=== PATIENT | male | born 1960 | race Caucasian/White ===

== ENCOUNTER 2021-11-12 12:50 | Inpatient (IN) | payer OTHER ==
[~2021-11-12] VITALS: Ht 175.3 cm; Wt 111.9 kg
[2021-11-12] MEDS ORDERED: BISACODYL 10 MG SUPP (DULCOLAX) PR PRN (13:30)
[2021-11-12] MEDS ORDERED: polyethylene glycoL POWDER 17 GM (MIRALAX) PACK PO PRN (13:30)
[2021-11-12] MEDS ORDERED: diphenhydrAMINE 50 MG/ML INJ (BENADRYL) IVP PRN (13:30)
[2021-11-12] MEDS ORDERED: CALCIUM CARBONATE 500 MG (TUMS) TAB.CHEW PO PRN (13:30)
[2021-11-12] MEDS ORDERED: MILK OF MAGNESIA 400 MG/5 ML 30 ML UDC PO PRN (13:30)
[2021-11-12] MEDS ORDERED: LACTULOSE SYRUP 10GM/15ML (ENULOSE) 30ML UDC PO PRN (13:30)
[2021-11-12] MEDS ORDERED: ONDANSETRON 4 MG/2 ML (SDV) Z0FRAN IV PRN (13:30)
[2021-11-12] MEDS ORDERED: ACETAMINOPHEN 325 MG TABLET PO PRN (13:30)
[2021-11-12] MEDS ORDERED: morphine INJ 4 MG/ML 1 ML (VIAL/SYRINGE) IV PRN (13:30)
[2021-11-12] MEDS ORDERED: guaiFENesin/CODEINE (ROBITUSSIN AC) 10ML UDC PO PRN (13:30)
[2021-11-12] MEDS ORDERED: ONDANSETRON 4 MG (ZOFRAN) ORAL DISSOLVE TAB PO PRN (13:30)
[2021-11-12] MEDS ORDERED: MELATONIN 3 MG TABLET PO PRN (13:30)
[2021-11-12] MEDS ORDERED: ANTACID SUSP 30 ML UDC (MYLANTA) PO PRN (13:30)
[2021-11-12] MEDS ORDERED: diphenhydrAMINE 25 MG TAB (BENADRYL) PO PRN (13:30)
[2021-11-12] MEDS: inSUlin ASPART (NovoLOG) 1 UNIT/0.01 ML (CHARGE PER UNIT) SC SCH ×2 (16:00→21:18)
--- OUTSIDE RECORDS SUMMARY | 2021-11-12 16:59 | XMS REPORT | Encounter Summary ---
Author Author [facility] Organization [facility] Address Unknown Phone Unavailable Care Team Providers Care Electronics Technician Name Role Phone MaineSandi JANAY PCP Reason for Referral * Diagnostic Imaging (Routine) - Authorized Diagnoses / Procedures Referred By [facility] Typical atrial flutter (HCC) Persistent atrial fibrillation (HCC) LBBB (left bundle branch block) Procedures Electrocardiogram ([place] [address] [place] [address] Referral ID Status Reason Start Date Expiration Visits Vi sits Date Requested Authorized [id number] Authorized 09/28/2021 03/29/2022 1 1 NE OILER Reason for Visit * Reason Comments Atrial fibrillation Atrial flutter Cardiomyopathy LBBB Encounter Details Care Team Description Date [place] [address] [place] [address] Persistent atrial fibrillation (Primary Dx); Typical atrial flutter (HCC); HOCM (hypertrophic obstructive cardiomyopathy) (HCC); Dyslipidemia; LBBB (left bundle branch block); S/P ablation of atrial fibrillation; S/P ablation of atrial flutter; S/P ventricular septal myectomy; S/P mitral valve repair; S/P left atrial appendage ligation 09/28/2021 Office Visit [facility] [address] [place], [place] [id number] Social History Date Tobacco Use Types Packs/Day Years Used Former Smoker Cigars, 0.5 20 Cigarettes Smokeless Tobacco: Former Chew Quit: 1989 User Comments Alcohol Use Standard Drinks/Week Yes 5 (1 standard drink = 0.6 o z pure alcohol) Sex Assigned at Date Recorded Not on file documented as of this encounter Last Filed Vital Signs Reading Time Taken Comments Vital Sign 124/97 09/28/2021 10:38 AM ENGINE OILER Blood Pressure 65 09/28/2021 10:38 AM ENGINE OILER Pulse - - Temperature - - Respiratory Rate - - Oxygen Saturation - - Inhaled Oxygen Concentration 112.5 kg (248 lb) 09/28/2021 10:38 AM ENGINE OILER Weight 170.2 cm (5' 7") 09/28/2021 10:38 AM ENGINE OILER Height 38.84 09/28/2021 10:38 AM ENGINE OILER Body Mass Index documented in this encounter Patient Instructions * Patient Instructions* Rupa Campbell RN - 09/28/2021 11:05 AM ENGINE OILER Your doctor has ordered the following test(s): No testing ordered A nurse will contact you with the results and your doctor's recommendations appr oximately 7-10 business days after the test has been completed. Medication Instructions: Continue current medications Additional Instructions: Things you can check to clue you in to A-fib: Check your pulse and see if it feels irregular verses regular. If it feels ir regular you may be in A-fib. Some BP monitors have a feature that will indicate you are in an irregular rh ythm. If it is irregular you may be in A-fib. Count your pulse and if your pulse is above 100 at rest then you may be in A- fib Check your rhythm with the Alive-Cor Kardia monitor and danielito or Apple watch 4 or above. (These are simply optional devices you can purchase to help you monito r your rhythm) They will tell you if you are in A-fib. Things that reduce your risk of a-fib reoccurence Moderate exercise 5-6 days per week Living at a healthy weight Limit alcohol intake to no more than 1 drink daily Treat sleep apnea if you have it or develop it Treat hypertension and the goal is to be in the normal range <140/80 Goal is to get a minimum of 150 mins aerobic exercise per week. It can be as si mple as 30 mins of walking 5 days per week. Follow up with MD/Advanced Practice Provider: annually with Dr. Crockett Please call the Dr. Crockett's Nurse Line at [phone] ([facility] Nurse Team). with any questions or concerns. For medication refill needs, please first contact [facility]. If you have not heard from scheduling within about 3-4 months of your next appoi ntment being due then please call us to schedule. For any [facility] scheduling questions, please call . At [facility], high quality patient care is our top priority. To ensure our cardiovascular standards are continuously met, you may receive a survey via [place] or text message, and we ask that you please take the time to fill it out. We strive to ensure you are very satisfied with every visit. Thank you in advance for taking the time to fill this out. It was a pleasure to see you again. Dr. Crockett and LOCO Goode NE OILER documented in this encounter Progress Notes * Kolby Crockett MD - 09/28/2021 11:05 AM ENGINE OILER [facility] Appointment Date: 09/28/2021 JANAY Hilton [address] [facility] [address] RE: Lillian Stover : 1960 Visit provider: Kolby Crockett MD Dear JANAY Hilton, I had the pleasure of seeing Lillian Stover in the office today. He is a(n) 61 y.o . male and presents with the following chief complaint(s): Atrial fibrillation, Atrial flutter, Cardiomyopathy, and LBBB HPI: He presents for annual cardiac electrophysiology followup due to a history of sy mptomatic recurrent persistent atrial fibrillation and atrial flutter. He has a history of hypertrophic obstructive cardiomyopathy, status post surgical myecto my with concomitant mitral valve repair and left atrial appendage ligation. It is noteworthy that the left atrial appendage is not fully ligated, however. He underwent a repeat invasive electrophysiology study in 2019, where we determined that the pulmonary veins remained electrically isolated from the initial ablati on procedure. We isolated the posterior wall using a "box lesion" and performed radiofrequency catheter ablation of the cavotricuspid isthmus. We determined t hat the superior vena cava was electrically isolated from the right atrium. Ove r the past year, he has had only fleeting symptoms of palpitations. He denies s ymptoms of chest pain, syncope, presyncope, dyspnea, or lower extremity edema. Laboratory tests are monitored by his primary care physician. Patient Active Problem List Diagnosis SNOMED CT(R) HOCM (hypertrophic obstructive cardiomyopathy) (HCC) HYPERTROPHIC OBSTRUCTIV E CARDIOMYOPATHY Mixed hyperlipidemia MIXED HYPERLIPIDEMIA Essential hypertension ESSENTIAL HYPERTENSION Family history of premature CAD FH: PREMATURE CORONARY HEART DISEASE LBBB (left bundle branch block) LEFT BUNDLE BRANCH BLOCK S/P patent foramen ovale closure HISTORY OF REPAIR OF ATRIAL SEPTAL DEFECT H/O ventricular septal myectomy H/O CARDIAC SURGERY Obesity (BMI 30-39.9) BODY MASS INDEX 30+ - OBESITY Agatston CAC score, <100 CORONARY ARTERY FINDING Atrial dilatation, bilateral ATRIAL DILATATION S/P mitral valve repair HISTORY OF REPAIR OF MITRAL VALVE S/P ablation of atrial fibrillation H/O: ATRIAL FIBRILLATION Atrial flutter (HCC) ATRIAL FLUTTER Persistent atrial fibrillation PERSISTENT ATRIAL FIBRILLATION Hypothyroidism HYPOTHYROIDISM Reactive airway disease REACTIVE AIRWAY DISEASE Hiatal hernia HIATAL HERNIA Coronary artery calcification of ak chin artery CALCIFICATION OF CORONARY ART NEGRO Past Medical History: Diagnosis Date Agatston CAC score, <100 03/28/2017 Agatston Score: 54.2 Asthma Atrial dilatation, bilateral Atrial fibrillation (HCC) Atrial flutter (HCC) Coronary artery calcification of ak chin artery Essential hypertension Family history of premature CAD Sister at age 48 Hiatal hernia 10/01/2020 HOCM (hypertrophic obstructive cardiomyopathy) (HCC) Hypothyroidism LBBB (left bundle branch block) Mitral valve insufficiency Mixed hyperlipidemia Obesity (BMI 30-39.9) Osteoarthritis Persistent atrial fibrillation (HCC) PFO (patent foramen ovale) Congenital Pre-diabetes Reactive airway disease Past Surgical History: Procedure Laterality Date CARDIAC CATHETERIZATION 08/25/2005 Normal coronaries. Patient was found to have a 70mmHg left ventricular outflow gradient. CARDIOVERSION 05/30/2017 Atrial Fib: Successful DCCV to NSR with one shock of 150j. CARDIOVERSION 09/12/2017 Atrial fib: Successful DCCV to NSR with one shock of 120j. CARDIOVERSION 01/25/2018 Atrial fib: Successful DCCV to NSR with one shock of 200j. CARDIOVERSION 09/05/2018 Atrial Flutter: Successful DCCV to NSR with biphasic synchronous shock of 120 J oules. CARDIOVERSION 10/10/2018 Atrial Flutter: Successful DCCVto SR following 1 shock at 50j. CLOSURE, PATENT FORAMEN OVALE 08/26/2005 COLONOSCOPY 10/02/2008 ELECTROPHYSIOLOGY STUDY WITH POSSIBLE LEFT ATRIAL ABLATION WITH REPEAT ABLAT ION IF INDICATED N/A 08/25/2017 Successful EPS and pulmonary vein cryoablation or treatment of atrial fibrillat ion. ELECTROPHYSIOLOGY STUDY WITH POSSIBLE LEFT ATRIAL ABLATION WITH REPEAT ABLAT ION IF INDICATED N/A 12/31/2018 Successful EPS and linear radiofrequency ablation "box lesion" of the left atri um to electrically isolate the posterior wall. Successful linear radiofrequency catheter ablation of the cavo-tricuspid isthmus for treatment of typical atrial flutter. ESOPHAGOGASTRODUODENOSCOPY MEGHA Ligation 08/26/2005 MITRAL VALVE REPAIR 08/26/2005 #28 Vania ring MYECTOMY, SEPTAL 08/26/2005 Final Medications: Current Outpatient Medications Medication Sig Dispense Refill acetaminophen 325 mg cap Take by mouth as needed. ascorbic acid (VITAMIN C ORAL) Take 1 tablet by mouth daily. atorvastatin (LIPITOR) 20 MG tablet TAKE ONE (1) TABLET (20 MG TOTAL) BY NELLY TH EVERY OTHER DAY. 90 tablet 3 COQ10, UBIQUINOL, ORAL Take 1 tablet by mouth daily. docusate sodium (COLACE) 100 MG capsule Take 100 mg by mouth as needed for c onstipation. ipratropium (ATROVENT) 0.06 % nasal spray Use 2 sprays in each nostril 4 (fo ur) times a day as needed. ipratropium-albuterol (DUO-NEB) 0.5-3 mg/3 mL nebulizer Inhale 3 mL via nebu lizer 4 (four) times a day as needed. LUTEIN ORAL Take 1 tablet by mouth daily. metoprolol succinate (TOPROL-XL) 100 MG 24 hr tablet TAKE ONE (1) TABLET BY MOUTH DAILY 90 tablet 3 multivitamin (THERAGRAN) per tablet take 1 tablet by oral route every day w ith food 1 0 omega 3 fish oil (SEA OMEGA) DHA 200 mg-EPA 300 mg (1,000 mg) capsule Take 3 capsules by mouth daily. ZINC ORAL Take 1 tablet by mouth daily. No current facility-administered medications for this visit. Allergies Allergen Reactions Influenza Virus Vaccines Shortness Of Breath and Nausea And Vomiting Tightness in throat and fever Family History: Problem Relation Age of Onset Colon cancer Father Coronary artery bypass graft Sister Diabetes Sister Coronary artery disease Sister Asthma Daughter Stroke Maternal Grandmother Hypertension Maternal Grandfather Social History: Social History Tobacco Use Smoking status: Former Smoker Packs/day: 0.50 Years: 20.00 Pack years: 10.00 Types: Cigars, Cigarettes Smokeless tobacco: Former User Types: Chew Quit date: 1989 Substance Use Topics Alcohol use: Yes Alcohol/week: 5.0 standard drinks Types: 5 Standard drinks or equivalent per week Drug use: No Review of Systems Constitutional: Negative for fever, malaise/fatigue and night sweats. HENT: Negative for nosebleeds. Cardiovascular: Negative for chest pain, claudication, cyanosis, dyspnea on exer tion, irregular heartbeat, leg swelling, near-syncope, orthopnea, palpitations, paroxysmal nocturnal dyspnea and syncope. Respiratory: Negative for cough, shortness of breath, sleep disturbances due to breathing, snoring and wheezing. Endocrine: Negative for cold intolerance and polydipsia. Hematologic/Lymphatic: Does not bruise/bleed easily. Skin: Negative for dry skin and itching. Musculoskeletal: Negative for arthritis, joint pain and myalgias. Gastrointestinal: Negative for dysphagia, hematochezia, nausea and vomiting. Genitourinary: Negative for hematuria. Neurological: Negative for difficulty with concentration, disturbances in coordi nation, excessive daytime sleepiness, dizziness, light-headedness, loss of lilly ce, numbness and paresthesias. All other systems reviewed and are negative. Vital Signs 09/28/21 1038 BP: (!) 124/97 Pulse: 65 Weight: 112.5 kg (248 lb) Height: 1.702 m (5' 7") BMI: Body mass index is 38.84 kg/m. Physical Exam Vitals reviewed. Constitutional: General: He is not in acute distress. Appearance: He is well-developed. He is not diaphoretic. HENT: Head: Normocephalic and atraumatic. Eyes: Conjunctiva/sclera: Conjunctivae normal. Neck: Thyroid: No thyromegaly. Vascular: No JVD. Cardiovascular: Rate and Rhythm: Normal rate and regular rhythm. Heart sounds: Normal heart sounds. No murmur heard. No friction rub. No gallop. Pulmonary: Effort: Pulmonary effort is normal. No respiratory distress. Breath sounds: Normal breath sounds. No wheezing or rales. Abdominal: General: Bowel sounds are normal. There is no distension. Palpations: Abdomen is soft. Tenderness: There is no abdominal tenderness. Musculoskeletal: General: Normal range of motion. Cervical back: Normal range of motion and neck supple. Skin: General: Skin is warm and dry. Neurological: Mental Status: He is alert and oriented to person, place, and time. Coordination: Coordination normal. Psychiatric: Behavior: Behavior normal. Thought Content: Thought content normal. Judgment: Judgment normal. Cholesterol Date Value 04/27/2017 175 mg/dL 09/13/2016 201 mg/dL (H) 08/28/2015 180 08/28/2015 180 mg/dL HDL Cholesterol (mg/dL) Date Value 04/27/2017 39 (L) 09/13/2016 44 08/28/2015 42 08/28/2015 42 Triglycerides (mg/dL) Date Value 04/27/2017 156 (H) 09/13/2016 196 (H) 08/28/2015 124 08/28/2015 124 LDL Cholesterol Date/Time Value Ref Range Status 04/27/2017 01:10 PM 105 (H) 0 - 99 mg/dL Final 09/13/2016 09:39 AM 118 (H) 0 - 99 mg/dL Final 08/28/2015 12:00 AM 113 mg/dL Final 08/28/2015 12:00 AM 113 mg/dL Final EKG: Normal Sinus Rhythm with LBBB at 65 bpm. Encounter Diagnoses Name Primary? Persistent atrial fibrillation Yes Typical atrial flutter (HCC) HOCM (hypertrophic obstructive cardiomyopathy) (HCC) Dyslipidemia LBBB (left bundle branch block) S/P ablation of atrial fibrillation S/P ablation of atrial flutter S/P ventricular septal myectomy S/P mitral valve repair S/P left atrial appendage ligation IMPRESSION AND PLAN: 1. Symptomatic recurrent persistent atrial fibrillation and atrial flutter. He is status post left atrial ablation and pulmonary vein isolation, posterior wall isolation and right atrial cavotricuspid isthmus ablation. He has been arrhyt ia symptom free off of antiarrhythmic drugs and off of anticoagulant therapy. If he develops recurrent atrial fibrillation, he will need to resume oral antico agulant therapy as the left atrial appendage is only partially ligated. Continu e metoprolol succinate. 2. Hypertrophic obstructive cardiomyopathy, status post surgical myectomy. 3. Status post mitral valve repair. 4. Status post partial left atrial appendage ligation. 5. Status post ablation of atrial fibrillation. 6. Status post ablation of atrial flutter. 7. Left bundle branch block. Treatment goals, progress and next steps, as above, were discussed and mutually agreed upon with the patient/family. Thank you for allowing me to participate in Lillian Stover's care. If I can be of any further assistance, please do not hesitate to contact me. Sincerely, Kolby Crockett MD/pl NE OILER documented in this encounter Plan of Treatment Not on filedocumented as of this encounter Goals Goal Patient Associated Recent Progress Patient-Stat Aut hor Goal Type Problems ed? Blood Pressure < 140/90 Blood 124/97 (09/28/2021 Darlene Crockett, Pressure 10:38 AM ENGINE OILER) Kolby Nassar MD documented as of this encounter Procedures Comments Procedure Name Priority Date/Time Associated Diag nosis ECG Routine 09/28/2021 Typical atrial flutter 10:31 AM ENGINE OILER (HCC) Persistent atrial fibrillation LBBB (left bundle branch block) documented in this encounter Results * Electrocardiogram (ECG) (09/28/2021 10:31 AM ENGINE OILER) QRSd 130 TRACEMASTER QT 428 TRACEMASTER QTC 445 TRACEMASTER ECGHR 65 TRACEMASTER ECGPR 188 TRACEMASTER Specimen Narrative TRACEMASTER - 10/02/2021 8:53 AM ENGINE OILER [facility] Test Date: 2021-09-28 Pat Name: LILLIAN STOVER Department: [facility] Room: Gender: Male Cost Estimating Manager: [id number] : 1960 Requested By: KOLBY CROCKETT Order Number: [id number] Reading MD: Kolby Crockett Measurements Intervals Bradshaw Rate: 65 P: -36 RI: 188 QRS: -14 QRSD: 130 T: 155 QT: 428 QTc: 445 Interpretive Statements SINUS RHYTHM LEFT BUNDLE BRANCH BLOCK Electronically Signed On 10-02-2021 8:53:00 ENGINE OILER by Kolby Crockett Procedure Note Kolby Crockett MD - 10/02/2021 [facility] Pedro Amaya Test Date: 2021-09-28 Pat Name: LILLIAN STOVER Department: [facility] Room: Gender: Male Cost Estimating Manager: [id number] : 1960 Requested By: KOLBY CROCKETT Order Number: [id number] Reading MD: Kolby Crockett Measurements Intervals Bradshaw Rate: 65 P: -36 RI: 188 QRS: -14 QRSD: 130 T: 155 QT: 428 QTc: 445 Interpretive Statements SINUS RHYTHM LEFT BUNDLE BRANCH BLOCK Electronically Signed On 10-02-2021 8:53:00 ENGINE OILER by Kolby Crockett Performing Organization Address City/State/ZIP Code P edgar Number TRACEMASTER documented in this encounter Visit Diagnoses Diagnosis Persistent atrial fibrillation - Primar y Atrial fibrillation Typical atrial flutter (HCC) HOCM (hypertrophic obstructive cardiomy opathy) (HCC) Hypertrophic obstructive cardiomyopathy Dyslipidemia Other and unspecified hyperlipidemia LBBB (left bundle branch block) Other left bundle branch block S/P ablation of atrial fibrillation Other postprocedural status S/P ablation of atrial flutter Other postprocedural status S/P ventricular septal myectomy S/P mitral valve repair Other postprocedural status S/P left atrial appendage ligation documented in this encounter Care Teams Start Date End Date Electronics Technician Relationship Specialty 09/13/16 Sandi Grove ARNP PCP - General Nurse [address] [place] [address] documented as of this encounter
--- OUTSIDE RECORDS SUMMARY | 2021-11-12 16:59 | XMS REPORT | Encounter Summary ---
Author Author [facility] Organization [facility] Address Unknown Phone Unavailable Care Team Providers Care Car Worker Name Role Phone Sandi Grove PCP Encounter Details Care Team Description Date Type Department Selam Rowe RN 09/24/2021 Abstract [facility] [address] [facility] [address] [place] [address] Social History Date Tobacco Use Types Packs/Day Years Used Quit: 10/23/1975 Former Smoker Cigars, 0.5 20 Cigarettes Smokeless Tobacco: Former Chew Quit: 1989 User Comments Alcohol Use Standard Drinks/Week Yes 0 (1 standard drink = 0.6 o z pure alcohol) Sex Assigned at Date Recorded Not on file documented as of this encounter Plan of Treatment Not on filedocumented as of this encounter Goals Goal Patient Associated Recent Progress Patient-Stat Aut hor Goal Type Problems ed? Blood Pressure < 140/90 Blood 124/97 (09/28/2021 No Giocondo, Pressure 10:38 AM AUTOMOTIVE TIRE TESTER) Khang Nassar MD documented as of this encounter Visit Diagnoses Diagnosis S/P ablation of atrial fibrillation Other postprocedural status documented in this encounter Care Teams Start Date End Date Car Worker Relationship Specialty 09/13/16 Sandi Grove ARNP PCP - General Nurse [address] [place] [address] documented as of this encounter
--- OUTSIDE RECORDS SUMMARY | 2021-11-12 16:59 | XMS REPORT | Clinical Summary ---
Author Author [facility] Organization [facility] Address Unknown Phone Unavailable Care Team Providers Care Director Of Labor Relations Name Role Phone MaineSandi JANAY PCP Allergies Comments Active Allergy Reactions Severity Noted Date Tightness in throat and fever Influenza Virus Vaccines Shortness Of High 09/10 Breath, Nausea And Vomiting Medications End Date Status Medication Sig Dispensed Refills Start Date Active multivitamin (THERAGRAN) take 1 tablet 1 0 per tablet by oral route 4 every day with food Active ipratropium-albuterol Inhale 3 mL 0 (DUO-NEB) 0.5-3 mg/3 mL via nebulizer nebulizer 4 (four) times a day as needed. Active acetaminophen 325 mg cap Take by mouth 0 as needed. Active ipratropium (ATROVENT) Use 2 sprays 0 0.06 % nasal spray in each nostril 4 (four) times a day as needed. Active omega 3 fish oil (SEA Take 3 0 OMEGA) DHA 200 mg-EPA 300 capsules by mg (1,000 mg) capsule mouth daily. Active docusate sodium (COLACE) Take 100 mg 0 100 MG capsule by mouth as needed for constipation. Active LUTEIN ORAL Take 1 tablet 0 by mouth daily. Active atorvastatin (LIPITOR) 20 TAKE ONE (1) 90 tablet 3 MG tablet TABLET (20 MG 1 TOTAL) BY MOUTH EVERY OTHER DAY. Active COQ10, UBIQUINOL, ORAL Take 1 tablet 0 by mouth daily. Active ascorbic acid (VITAMIN C Take 1 tablet 0 ORAL) by mouth daily. Active ZINC ORAL Take 1 tablet 0 by mouth daily. Active metoprolol succinate TAKE ONE (1) 90 tablet 3 (TOPROL-XL) 100 MG 24 hr TABLET BY 1 tabletIndications: HOCM MOUTH DAILY (hypertrophic obstructive cardiomyopathy) (HCC) Active Problems Problem Noted Date Hiatal hernia 10/01/2020 Atrial flutter 10/10/2018 S/P ablation of atrial fibrillation 08/25/2017 Agatston CAC score, <100 03/28/2017 Overview: Formatting of this note might be differ ent from the original. Agatston Score: 54.2 Reactive airway disease 12/16/2014 S/P patent foramen ovale closure 08/26/2005 H/O ventricular septal myectomy 08/26/2005 S/P mitral valve repair 08/26/2005 Overview: Formatting of this note might be differ ent from the original. #28 Vania ring HOCM (hypertrophic obstructive cardiomy opathy) Mixed hyperlipidemia Essential hypertension Family history of premature CAD Overview: Formatting of this note might be differ ent from the original. sister at age 48 LBBB (left bundle branch block) Obesity (BMI 30-39.9) Atrial dilatation, bilateral Overview: Formatting of this note might be differ ent from the original. 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 2019 Encounters Care Team Description Date Type Specialty Khang Crockett MD Persistent atrial fibrillation (Primary Dx); Typical atrial flutter (HCC); HOCM (hypertrophic obstructive cardiomyopathy) (HCC); Dyslipidemia; LBBB (left bundle branch block); S/P ablation of atrial fibrillation; S/P ablation of atrial flutter; S/P ventricular septal myectomy; S/P mitral valve repair; S/P left atrial appendage ligation 09/28/2021 Office Visit Cardiology Selam Rowe RN 09/24/2021 Abstract Cardiology Khang Crockett MD 09/17/2021 Documentation Cardiology from Last 3 Months Family History Medical History Relation Name Comments Asthma Daughter Colon cancer Father Hypertension Maternal Grandfather Stroke Maternal Grandmother Coronary artery bypass Sister graft Coronary artery disease Sister Diabetes Sister Relation Name Status Comments Daughter Father Cause of was Cancer, non-cardiac at age 48. (Age 48) Maternal Grandfather Maternal Grandmother Mother Sister Social History Date Tobacco Use Types Packs/Day Years Used Former Smoker Cigars, 0.5 20 Cigarettes Smokeless Tobacco: Former Chew Quit: 1989 User Comments Alcohol Use Standard Drinks/Week Yes 5 (1 standard drink = 0.6 o z pure alcohol) Sex Assigned at Date Recorded Not on file Last Filed Vital Signs Reading Time Taken Comments Vital Sign 124/97 09/28/2021 10:38 AM MEMBERSHIP COORDINATOR Blood Pressure 65 09/28/2021 10:38 AM MEMBERSHIP COORDINATOR Pulse 36.7 C (98.1 F) 01/01/2019 7:02 AM CDT Temperature 16 01/01/2019 7:02 AM CDT Respiratory Rate 93% 01/23/2019 10:22 AM CDT Oxygen Saturation - - Inhaled Oxygen Concentration 112.5 kg (248 lb) 09/28/2021 10:38 AM MEMBERSHIP COORDINATOR Weight 170.2 cm (5' 7") 09/28/2021 10:38 AM MEMBERSHIP COORDINATOR Height 38.84 09/28/2021 10:38 AM MEMBERSHIP COORDINATOR Body Mass Index Plan of Treatment Health Maintenance Due Date Last Done Comments Hepatitis C Screen 1960 Td/Tdap# 1960 COVID-19 Vaccine (1) 01/14/1965 Colonoscopy 01/14/2005 Zoster Vaccine# (1 of 2) 01/14/2010 Pneumococcal Vaccine: Aged Out No longer eligib le based on patient's age to Pediatrics (0 to 5 Years) complete this topic and At-Risk Patients (6 to 64 Years) Goals Goal Patient Associated Recent Progress Patient-Stat Aut hor Goal Type Problems ed? Blood Pressure < 140/90 Blood 124/97 (09/28/2021 No Giocondo, Pressure 10:38 AM MEMBERSHIP COORDINATOR) Khang Nassar MD Procedures Comments Procedure Name Priority Date/Time Associated Diag nosis ECG Routine 09/28/2021 Typical atrial flutter 10:31 AM MEMBERSHIP COORDINATOR (HCC) Persistent atrial fibrillation LBBB (left bundle branch block) from Last 3 Months Results * Electrocardiogram (ECG) (09/28/2021 10:31 AM MEMBERSHIP COORDINATOR) QRSd 130 TRACEMASTER QT 428 TRACEMASTER QTC 445 TRACEMASTER ECGHR 65 TRACEMASTER ECGPR 188 TRACEMASTER Specimen Narrative TRACEMASTER - 10/02/2021 8:53 AM MEMBERSHIP COORDINATOR [facility] Test Date: 2021-09-28 Pat Name: LILLIAN STOVER Department: [facility] Room: 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1960 Requested By: KHANG CROCKETT Order Number: [id number] Reading MD: Khang Crockett Measurements Intervals Grace Rate: 65 P: -36 GA: 188 QRS: -14 QRSD: 130 T: 155 QT: 428 QTc: 445 Interpretive Statements SINUS RHYTHM LEFT BUNDLE BRANCH BLOCK Electronically Signed On 10-02-2021 8:53:00 MEMBERSHIP COORDINATOR by Khang Crockett Procedure Note Khang Crockett MD - 10/02/2021 [facility] Test Date: 2021-09-28 Pat Name: LILLIAN STOVER Department: [facility] Room: 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: [id number] : 1960 Requested By: KHANG CROCKETT Order Number: [id number] Reading MD: Khang Crockett Measurements Intervals Grace Rate: 65 P: -36 GA: 188 QRS: -14 QRSD: 130 T: 155 QT: 428 QTc: 445 Interpretive Statements SINUS RHYTHM LEFT BUNDLE BRANCH BLOCK Electronically Signed On 10-02-2021 8:53:00 MEMBERSHIP COORDINATOR by Khang Crockett Performing Organization Address City/State/ZIP Code P edgar Number TRACEMASTER from Last 3 Months Insurance Type Payer Benefit Subscriber ID Effective Phone Address Plan / Dates Group OTHER GOVERNMENT [facility] [id number] 2020- [phone] [facility] Present [address] [place] [address] Lillian Stover Personal/F Self [phone] (Home) [place] [address] Lillian Stover Personal/F Self [phone] [place] [address] AlLillian da silva Maday Personal/F Self [phone]) [place] [address] Advance Directives For more information, please contact: [phone] Patient Technology Engineer Explanation Type Date Recorded Advance Directives and Living Will Power of Banquet Server On Call Health Care Directive Date Inactivated Comments Code Status Date Activated 01/01/2019 1:35 PM Full Code 12/31/2018 12:26 PM 08/26/2017 1:26 PM Full Code 08/25/2017 11:24 AM Care Teams Start Date End Date Director Of Labor Relations Relationship Specialty 09/13/16 Sandi Grove ARNP PCP - General Nurse [id number] [place] [address]
--- OUTSIDE RECORDS SUMMARY | 2021-11-12 16:59 | XMS REPORT | Encounter Summary ---
Author Author [facility] Organization [facility] Address Unknown Phone Unavailable Care Team Providers Care Supervisor Looping Name Role Phone Sandi Grove PCP Encounter Details Care Team Description Date [place] [address] [place] [address] 09/17/2021 Documentation [facility] [address] [place] [address] Social History Date Tobacco Use Types Packs/Day [...] Pressure < 140/90 Blood 124/97 (09/28/2021 No Giocon, Pressure 10:38 AM TOOL/DIE MAKER) Khang Nassar MD documented as of this encounter Visit Diagnoses Not on filedocumented in this encounter Care Teams Start Date End Date Supervisor Looping Relationship Specialty 09/13/16 Sandi Grove ARNP PCP - General Nurse [address] [place] [address] documented as of this encounter
--- NOTE | 2021-11-12 17:45 | Tele-ICU Consult ---
History of Present Illness History of Present Illness Date Seen by Provider: Nov 12, 2021 Time Seen by Provider: 17:41 Date of Admission Allergies and Home Medications Allergies Coded Allergies: No Known Drug Allergies (Unverified , 11/12/21) Review of Systems Constitutional: see HPI Focused Exam Height, Weight, BMI Height: '" Weight: lbs. oz. kg; 37.74 BMI Method: Exam Exam Patient acknowledged, consented, and participated in this virtual visit which was conducted using real time audio/video Vital Signs Date Time Temp Pulse Resp B/P (MAP) Pulse Ox O2 Delivery O2 Flow Rate FiO2 11/12/21 17:32 81 11/12/21 17:00 80 21 125/69 93 Nasal Cannula 2.00 Height & Weight Height: '" Weight: lbs. oz. kg; 37.74 BMI Method: General Appearance: No Apparent Distress Assessment/Plan Assessment/Plan (Tele-ICU Physician , consultation) Available chart/ vitals / labs / Images reviewed H&P is from discussin with Dr Molina Patient's information available about PMH, Shx, Fhx allergy reviewed in EMR. ROS as per chart and RN report Now in ICU, hemodynamically stable Video assessment done using teleICU camera, rest of exam as per RN Discussed with RN. Consultants: srini Hospital course: 11/12 - tranfef fron other facility with Covid PNA , on NC o2 A/P AHRF due to COVID19 - monitor closely -prone position if able - conservative fluid strategy (aim for even or negative fluid balance if ok with cards [id number]-[id number]-3/COVID-19 PNA ( Symptom onset ~ , DX unvaccinted --Dexamethasone 1/ - ? candidate for Tocilizumab -Hypercoagulable state -->lovenox proph dose Suspected superimposed bact PNA -empiric abx started on 11/11 h/o hypertrophic CM - cards consulted COPD/ astma = - br - dilators ., monitor if needs increased stweropid dose Lines : (Central Line Necessity Reviewed) Coffman: OG: Nutrition: Analgesia: Anxiety/ delirium VTE Prophylaxis: perez 40 Stress Ulcer Prophylaxis: po Plans in collaboration with bedside consultants and IM MDs. Discussed with RN to reach out if any questions or concerns A total of 31 minutes of critical care time was devoted to this patient today, required to treat and/or prevent further deterioration of critical care condition ( as above ) . TONY HARMAN MD Nov 12, 2021 17:45
[2021-11-12] MEDS: ENOXAPARIN 40 MG/0.4 ML (LOVENOX) SYR SC SCH (17:49)
[2021-11-12] MEDS: AZITHROMYCIN INJECTION 500 MG in NS (IVPB) 250 ML IV SCH (17:49)
[2021-11-12 18:09] LABS: POTASSIUM 3.9 MMOL/L (3.6-5.0)
[2021-11-12 18:10] LABS: CALCIUM 8.2 MG/DL (8.5-10.1)
[2021-11-12 18:14] LABS: CREATININE SERUM 0.64 MG/DL (0.60-1.30)
--- NOTE | 2021-11-12 18:22 | History & Physical ---
History of Present Illness HPI/Chief Complaint Chief Complain: Shortness of Breath HPI: This is a 61yoWM who has a history of asthma, COPD, and Hypertrophic Cardiomyopathy managed at [facility] who presented from [facility] ER with Acute Hypoxic Respiratory Failure he remains unvaccinated. Due to the fact of the heart disorder he met criteria for higher level of care, I did confer with Dr. Milner and I did update the ICU on the incoming transfer. He will be placed on Cefepime and Azithromycin, Lovenox and Decadron and BiPAP, and Vapotherm as needed. Pt is at high risk for intubation. I did speak to him about Actemra. Monitor closely. Source: patient, RN/MD Exam Limitations: no limitations Date Seen 11/12/21 Time Seen by a Provider: 18:30 Attending Physician Calli Molina DO PCP Referring Physician Date of Admission Nov 12, 2021 at 15:52 Home Medications & Allergies Home Medications Reviewed patient Home Medication Reconciliation performed by pharmacy medication reconciliations integration technician and/or nursing. Patients Allergies have been reviewed. 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) Alcohol Use: Occasionally Uses Smoking Status: Never a Smoker Past Medical History Cardiac: High Cholesterol, Hypertension Review of Systems Constitutional: see HPI, dizziness, fever, malaise, weakness EENTM: no symptoms reported Respiratory: cough, dyspnea on exertion, short of breath Cardiovascular: no symptoms reported Gastrointestinal: no symptoms reported Genitourinary: no symptoms reported Musculoskeletal: back pain Skin: no symptoms reported Psychiatric/Neurological: No Symptoms Reported All Other Systems Reviewed Negative Unless Noted: Yes Physical Exam Physical Exam Vital Signs Vital Signs - First Documented 11/12/21 11/12/21 11/12/21 17:00 20:35 20:39 Temp 36.2 Pulse 80 Resp 21 B/P (MAP) 125/69 Pulse Ox 93 O2 Delivery Nasal Cannula O2 Flow Rate 2.00 FiO2 21 Capillary Refill : Height, Weight, BMI Height: '" Weight: lbs. oz. kg; 37.74 BMI Method: General Appearance: No Apparent Distress, Anxious, Chronically ill, Obese HEENT: PERRL/EOMI, Normal ENT Inspection, Pharynx Normal Neck: Full Range of Motion, Normal Inspection, Non Tender, Supple, Carotid Bruit Respiratory: No Respiratory Distress, Accessory Muscle Use, Decreased Breath Sounds Cardiovascular: Regular Rate, Rhythm, No Edema, Normal Peripheral Pulses Gastrointestinal: Normal Bowel Sounds, No Organomegaly, No Pulsatile Mass, Non Tender, Soft Extremity: Normal Capillary Refill, Normal Inspection, Normal Range of Motion, Non Tender, No Calf Tenderness, No Pedal Edema Neurologic/Psychiatric: Alert, Oriented x3, No Motor/Sensory Deficits, Normal Mood/Affect Skin: Normal Color, Warm/Dry Lymphatic: No Adenopathy Results Results/Procedures Labs Laboratory Tests 11/12/21 17:37 11/13/21 04:07 Patient resulted labs reviewed. Assessment/Plan Admission Diagnosis Assessment: Acute hypoxic respiratory failure COVID-19 pneumonia Presumed DOMINIQUE undiagnosed Obesity BMI [address] [facility] Hypertension Plan: COVID-19 protocol May be a candidate for Actemra if progresses High risk for intubation Echo Cardiology appreciated eICU appreciated Admission Status: Inpatient Order (span 2 midnights) Reason for Inpatient Admission: Acute respiratory failure Diagnosis/Problems Diagnosis/Problems (1) COVID (2) Hypertrophic cardiomyopathy (3) Obesity (BMI 30-39.9) (4) Hypertension (5) Hyperlipidemia (6) DOMINIQUE (obstructive sleep apnea) CALLI MOLINA DO Nov 12, 2021 18:22
[2021-11-12] MEDS ORDERED: MTP100TCR PO (18:39)
[2021-11-12 18:47] LABS: ABG BASE EXCESS -0.2 MMOL/L (-2.5-2.5); ABG OXYGEN SATURATION 50 % (94-100); ABG PCO2 45 MMHG (35-45); ABG PH 7.36 (7.37-7.43); ABG TCO2 25.9 MMOL/L (21.0-31.0)
[2021-11-12 18:50] LABS: ABG PO2 33 MMHG (79-93)
[2021-11-12 18:51] LABS: ALLENS TEST POS; INSPIRED O2 2; PATIENT TEMP 37; VENTILATOR NO
[2021-11-12] MEDS ORDERED: HOLD METFORMIN - RECEIVED CONTRAST 20 ML VIAL IV SCH (19:45)
[2021-11-12] MEDS ORDERED: IOHEXOL 350 MG/ML 100 ML (OMNIPAQUE 350) VIAL IV ONE (19:45)
[2021-11-12] MEDS ORDERED: NS 100 ML (IVPB) BAG IV ONE (19:45)
[2021-11-12] MEDS ORDERED: ALPRAZolam 0.5 MG (XANAX) TAB PO SCH (20:00)
--- NOTE | 2021-11-12 20:05 | Diagnostic Imaging Report ---
INDICATION: Cough, Covid. FINDINGS: Patchy bilateral infiltrates largely peripheral consistent with nonspecific infectious etiology including Covid. No effusion, pneumothorax or elena failure pattern. Sternal wires midline. The heart is mildly enlarged but no vascular congestion. IMPRESSION: Multifocal bilateral infiltrates. Upper limits heart size but no elena failure pattern or pleural fluid. Dictated by: Dictated on workstation # [id number]
--- NOTE | 2021-11-12 20:06 | Diagnostic Imaging Report ---
PROCEDURE: CT angiography of the chest with contrast. TECHNIQUE: Multiple contiguous axial images were obtained through the chest after uneventful bolus administration of intravenous contrast. 3D reconstructed CTA MIP acquisitions were also performed. Auto Exposure Controls were utilized during the CT exam to meet ALARA standards for radiation dose reduction. INDICATION: Covid patient. Respiratory distress. FINDINGS: There are no intraluminal pulmonary arterial filling defects. There are no findings of pulmonary arterial embolus. The heart is mildly enlarged. There are five lobe patchy groundglass infiltrates in keeping with the history of Covid pneumonia. No effusion or pneumothorax. No mediastinal gas. The visualized upper abdomen nonacute. The aorta is patent and nonaneurysmal. There is a tiny hiatal hernia. IMPRESSION: No PE or acute aortic disease identified. Five lobe groundglass infiltrates consistent with Covid pneumonia. No effusion or pneumothorax. Dictated by: Dictated on workstation # [id number]
[2021-11-12 20:35] VITALS: BP 125/69
[2021-11-12] MEDS ORDERED: RT-ALBUTEROL HFA 8.5 GM INHALER IH PRN (20:45)
[2021-11-12] MEDS: guaiFENesin (MUCINEX) 600 MG TAB PO SCH (21:06)
[2021-11-12] MEDS: CEFEPIME INJECTION 1,000 MG in NS (IVPB) 50 ML IV SCH (21:07)
[2021-11-12] MEDS: SENNOSIDES 8.6 MG (SENOKOT) TAB PO SCH (21:18)
[2021-11-12] MEDS: DOCUSATE SODIUM 100 MG (COLACE) CAP PO SCH (21:18)
[2021-11-13] MEDS: ALPRAZolam 0.5 MG (XANAX) TAB PO PRN (00:07)
[2021-11-13] MEDS: CEFEPIME INJECTION 1,000 MG in NS (IVPB) 50 ML IV SCH ×4 (02:07→18:34)
[2021-11-13 04:49] LABS: BASOPHILS % (AUTO) 0 % (0-10); EOSINOPHILS % (AUTO) 0 % (0-10); HEMOGLOBIN 13.3 g/dL (13.3-17.7); MEAN CORPUSCULAR VOLUME 91 fL (80-99); MONOCYTES # (AUTO) 0.3 10^3/uL (0.0-1.0)
[2021-11-13 04:50] LABS: HEMATOCRIT 38 % (40-54); LYMPHOCYTES # (AUTO) 0.9 10^3/uL (1.0-4.0); LYMPHOCYTES % (AUTO) 27 % (12-44); MEAN CORPUSCULAR HEMOGLOBIN 32 pg (25-34); MEAN CORPUSCULAR HGB CONC 35 g/dL (32-36); MEAN PLATELET VOLUME 10.9 fL (9.0-12.2); MONOCYTES % (AUTO) 10 % (0-12); NEUTROPHILS % (AUTO) 63 % (42-75); PLATELET COUNT 132 10^3/uL (130-400); WHITE BLOOD COUNT 3.2 10^3/uL (4.3-11.0)
[2021-11-13 05:01] LABS: ALBUMIN 3.3 GM/DL (3.2-4.5)
[2021-11-13 05:03] LABS: CALCIUM 8.1 MG/DL (8.5-10.1)
[2021-11-13 05:04] LABS: TOTAL PROTEIN 5.8 GM/DL (6.4-8.2)
[2021-11-13 05:05] LABS: BILIRUBIN,TOTAL 0.9 MG/DL (0.1-1.0)
[2021-11-13] MEDS: inSUlin ASPART (NovoLOG) 1 UNIT/0.01 ML (CHARGE PER UNIT) SC SCH ×4 (05:05→19:54)
[2021-11-13 05:07] LABS: PHOSPHORUS 2.7 MG/DL (2.3-4.7)
[2021-11-13 05:08] LABS: CREATININE SERUM 0.71 MG/DL (0.60-1.30)
[2021-11-13 05:10] LABS: MAGNESIUM 2.1 MG/DL (1.6-2.4)
[2021-11-13] MEDS ORDERED: KCL 20 MEQ TAB (K-DUR) PO SCH (06:00)
[2021-11-13] MEDS ORDERED: MAGNESIUM 1 GM/100 ML IVPB 100 ML IV SCH (06:00)
[2021-11-13] MEDS ORDERED: POTASSIUM CL 10MEQ/50ML IVPB 50 ML IV SCH (06:00)
--- NOTE | 2021-11-13 06:54 | Progress Note ---
Subjective Date Seen by a Provider: Nov 13, 2021 Time Seen by a Provider: 11:30 Subjective/Events-last exam Patient doing well No increased oxygen requirements Ready for transfer to 4th floor Checked meds and labs No pain is reported Echocardiogram reviewed Likely sleep apnea causes desat at night Review of Systems Pulmonary: Dyspnea, Cough Objective Exam Last Set of Vital Signs Vital Signs Date Time Temp Pulse Resp B/P (MAP) Pulse Ox O2 Delivery O2 Flow Rate FiO2 11/13/21 06:00 56 25 126/88 98 Nasal Cannula 2.00 11/12/21 20:39 36.2 11/12/21 20:35 21 Capillary Refill : I&O Intake and Output 11/13/21 00:00 Intake Total 620 ml Output Total 0 ml Balance 620 ml Intake Oral 620 ml Output Urine Total 0 ml # Voids 1 Daily Weight Change No General: Alert, Oriented X3, Cooperative, No Acute Distress Lungs: Clear to Auscultation, Normal Air Movement, Other (Diminished breath sounds) Heart: Regular Rate Abdomen: Normal Bowel Sounds Psych/Mental Status: Mental Status NL Results Lab Laboratory Tests 11/12/21 17:37: Sodium Level 133L, Potassium Level 3.9, Chloride Level 101, Carbon Dioxide Level 21, Anion Gap 11, Blood Urea Nitrogen 10, Creatinine 0.64, Estimat Glomerular Filtration Rate 108, BUN/Creatinine Ratio 16, Glucose Level 130H, Calcium Level 8.2L 11/12/21 18:05: Blood Gas Puncture Site RRAD, Blood Gas Patient Temperature 37, Arterial Blood pH 7.36L, Arterial Blood Partial Pressure CO2 45, Arterial Blood Partial Pressu re O2 33*L, Arterial Blood HCO3 25, Arterial Blood Total CO2 25.9, Arterial Blood Oxygen Saturation 50L, Arterial Blood Base Excess -0.2, Shaquille Test POS, Blood Gas Ventilator Setting NO, Blood Gas Inspired Oxygen 2 11/12/21 20:13: Glucometer 180H 11/13/21 04:07: Sodium Level 134L, Potassium Level 4.0, Chloride Level 103, Carbon Dioxide Level 20L, Anion Gap 11, Blood Urea Nitrogen 12, Creatinine 0.71, Estimat Glomerular Filtration Rate 104, BUN/Creatinine Ratio 17, Glucose Level 138H, Calcium Level 8.1L, White Blood Count 3.2L, Red Blood Count 4.15L, Hemoglobin 13.3, Hematocrit 38L, Mean Corpuscular Volume 91, Mean Corpuscular Hemoglobin 32, Mean Corpuscular Hemoglobin Concent 35, Red Cell Distribution Width 11.6, Platelet Count 132, Mean Platelet Volume 10.9, Immature Granulocyte % (Auto) 0, Neutrophils (%) (Auto) 63, Lymphocytes (%) (Auto) 27, Monocytes (%) (Auto) 10, Eosinophils (%) (Auto) 0, Basophils (%) (Auto) 0, Neutrophils # (Auto) 2.0, Lymphocytes # (Auto) 0.9L, Monocytes # (Auto) 0.3, Eosinophils # (Auto) 0.0, Basophils # (Auto) 0.0, Immature Granulocyte # (Auto) 0.0, Percent Immature Platelet Fraction 5.2, Corrected Calcium 8.7, Phosphorus Level 2.7, Magnesium Level 2.1, Total Bilirubin 0.9, Aspartate Amino Transf (AST/SGOT) 63H, Alanine Aminotransferase (ALT/SGPT) 72H, Alkaline Phosphatase 115, Total Protein 5.8L, Albumin 3.3 Assessment/Plan Assessment/Plan Assess & Plan/Chief Complaint Assessment: Acute hypoxic respiratory failure COVID-19 pneumonia Presumed DOMINIQUE undiagnosed Obesity BMI [address] [facility] Hypertension Plan: COVID-19 protocol May be a candidate for Actemra if progresses High risk for intubation Echo Cardiology appreciated eICU appreciated 11/13/2021: Supportive care Transfer to 4th floor Appreciate cardiology Oxygen wean Diagnosis/Problems Diagnosis/Problems (1) COVID (2) Hypertrophic cardiomyopathy (3) Obesity (BMI 30-39.9) (4) Hypertension (5) Hyperlipidemia (6) DOMINIQUE (obstructive sleep apnea) SHELBY ANSARI DO Nov 13, 2021 06:54
[2021-11-13] MEDS ORDERED: RT-ALBUTEROL HFA 8.5 GM INHALER IH SCH (07:00)
[2021-11-13] MEDS: guaiFENesin (MUCINEX) 600 MG TAB PO SCH ×2 (08:43→19:53)
[2021-11-13] MEDS: SENNOSIDES 8.6 MG (SENOKOT) TAB PO SCH ×2 (08:43→19:53)
[2021-11-13] MEDS: DOCUSATE SODIUM 100 MG (COLACE) CAP PO SCH ×2 (08:46→19:53)
[2021-11-13] MEDS ORDERED: meTOprolol SUCCINATE 100 MG (TOPROL XL) TAB PO SCH (09:00)
[2021-11-13] MEDS: RT-ALBUTEROL HFA 8.5 GM INHALER IH SCH ×2 (09:13→21:28)
--- NOTE | 2021-11-13 10:11 | Tele-ICU Progress Note ---
Subjective Date Seen by a Provider: Nov 13, 2021 Time Seen by a Provider: 08:50 Subjective/Events-last exam This virtual visit was conducted using real time audio/video. Thank you for asking us to see this patient for respiratory insufficiency due to Covid pna. Unvaccinated. Recent events: Transferred fro outside ER 11/12/2021. Placed back on NC 2 LPM this AM. PE: Obese, alert. VSS. O2 sat 98% on 2L HEENT: No obvious masses, adenopathy or JVD. Chest: clear to auscultation. Diminished. CV: RRR S1 S2 No murmur or added sounds. Abd: Non-tender. Bowel sounds Y. : Unremarkable. Coffman N. FARM TRUCK DRIVER/psychiatric: Grossly intact. No obvious focal findings. Extremities: edema. Capillary refill < 3 seconds. Skin: unremarkable. Results: BG 138 Decreased WCC 3.2. B.36/45/33. CTAC: No PE, B GGOs present. Available chart/ vitals / labs / images reviewed. Video assessment done using teleICU camera, rest of exam as per RN. A/P: Respiratory insufficiency: Continue present management with O2, BDs. Monitor for increasing oxygenation needs and/or need for intubation. Critical Care: critically ill patient. Cont. Dex., Vladimir., Cefip., AZT, SSI. Discussed with LOCO Bueno. Asked RN to reach out to eICU if any questions or concerns later. Time spent with patient/coordination of care with other health professionals (mins): 25 Sepsis Event Evaluation Height, Weight, BMI Height: '" Weight: lbs. oz. kg; 37.74 BMI Method: Exam Exam Patient acknowledged, consented, and participated in this virtual visit which was conducted using real time audio/video Vital Signs Date Time Temp Pulse Resp B/P (MAP) Pulse Ox O2 Delivery O2 Flow Rate FiO2 11/13/21 09:00 71 30 90 Room Air 11/13/21 08:46 Room Air 11/13/21 08:08 35.8 11/13/21 07:00 58 11/13/21 07:00 58 18 135/80 94 Nasal Cannula 2.00 11/13/21 06:00 56 25 126/88 98 Nasal Cannula 2.00 11/13/21 05:00 64 25 143/90 99 Nasal Cannula 2.00 11/13/21 04:00 96 Nasal Cannula 2.00 11/13/21 04:00 70 24 121/72 96 Nasal Cannula 2.00 11/13/21 03:00 64 26 130/70 97 Nasal Cannula 2.00 11/13/21 02:00 70 25 137/83 90 Nasal Cannula 2.00 11/13/21 01:00 73 26 124/90 94 Nasal Cannula 2.00 11/13/21 01:00 70 11/13/21 00:00 68 29 156/93 94 Nasal Cannula 2.00 11/12/21 23:59 94 Nasal Cannula 2.00 11/12/21 23:00 70 33 131/101 91 Nasal Cannula 2.00 11/12/21 22:00 75 38 138/80 92 Nasal Cannula 2.00 11/12/21 21:00 70 15 147/89 97 Nasal Cannula 2.00 11/12/21 20:39 36.2 11/12/21 20:35 80 93 21 11/12/21 20:00 78 25 125/73 93 Nasal Cannula 2.00 11/12/21 20:00 97 Nasal Cannula 2.00 11/12/21 19:00 87 25 121/77 95 Nasal Cannula 2.00 11/12/21 19:00 85 11/12/21 18:00 80 22 132/89 92 Nasal Cannula 2.00 11/12/21 17:32 81 11/12/21 17:20 Nasal Cannula 2.00 11/12/21 17:00 80 21 125/69 93 Nasal Cannula 2.00 I & O 11/13/21 07:00 Intake Total 1520 ml Output Total 600 ml Balance 920 ml Height & Weight Height: '" Weight: lbs. oz. kg; 37.74 BMI Method: General Appearance: No Apparent Distress, Anxious, Chronically ill, Obese HEENT: PERRL/EOMI, Normal ENT Inspection, Pharynx Normal Neck: Full Range of Motion, Normal Inspection, Non Tender, Supple, Carotid Bruit Respiratory: No Respiratory Distress, Accessory Muscle Use, Decreased Breath Sounds Cardiovascular: Regular Rate, Rhythm, No Edema, Normal Peripheral Pulses Extremity: Normal Capillary Refill, Normal Inspection, Normal Range of Motion, Non Tender, No Calf Tenderness, No Pedal Edema Neurologic/Psychiatric: Alert, Oriented x3, No Motor/Sensory Deficits, Normal Mood/Affect Skin: Normal Color, Warm/Dry Lymphatic: No Adenopathy Results Lab Laboratory Tests 11/12/21 17:37 11/13/21 04:07 Assessment/Plan Assessment/Plan See free text. Critical Care: Critically Ill Patient CHRYSTAL BOWMAN MD Nov 13, 2021 10:10
--- NOTE | 2021-11-13 10:16 | Tele-ICU Progress Note ---
Subjective Date Seen by a Provider: Nov 13, 2021 Time Seen by a Provider: 09:15 Subjective/Events-last exam This virtual visit was conducted using real time audio/video. Thank you for asking us to see this patient for respiratory insufficiency due to delirium following suicide attempt. Recent events: None overnight. PE: Sedated on vent. VSS. O2 sat 95% on 30%/+5. HEENT: No obvious masses, adenopathy or JVD. Chest: clear to auscultation. CV: RRR S1 S2 No murmur or added sounds. Abd: Non-tender. Bowel sounds Y. : Unremarkable. [place] Y. [employer] TECH/psychiatric: Grossly intact. No obvious focal findings. Extremities: No edema. Capillary refill < 3 seconds. Skin: unremarkable. Results: Decreased Hb 8.8, Alb 2.9. B.4/38/87. Available chart/ vitals / labs / images reviewed. Video assessment done using teleICU camera, rest of exam as per RN. A/P: Respiratory insufficiency: Continue current vent settings as pt detox. proceeds. Cont Prop., Prec., Fent. Critical Care: critically ill patient. Cont. thiamine, folate, PPI. Discussed with RN Ximena. Asked RN to reach out to eICU if any questions or c oncerns later. Time spent with patient/coordination of care with other health professionals (mins): 15. Sepsis Event Evaluation Height, Weight, BMI Height: '" Weight: lbs. oz. kg; 37.74 BMI Method: Exam Exam Patient acknowledged, consented, and participated in this virtual visit which was conducted using real time audio/video Vital Signs Date Time Temp Pulse Resp B/P (MAP) Pulse Ox O2 Delivery O2 Flow Rate FiO2 11/13/21 09:00 71 30 90 Room Air 11/13/21 08:46 Room Air 11/13/21 08:08 35.8 11/13/21 07:00 58 11/13/21 07:00 58 18 135/80 94 Nasal Cannula 2.00 11/13/21 06:00 56 25 126/88 98 Nasal Cannula 2.00 11/13/21 05:00 64 25 143/90 99 Nasal Cannula 2.00 11/13/21 04:00 96 Nasal Cannula 2.00 11/13/21 04:00 70 24 121/72 96 Nasal Cannula 2.00 11/13/21 03:00 64 26 130/70 97 Nasal Cannula 2.00 11/13/21 02:00 70 25 137/83 90 Nasal Cannula 2.00 11/13/21 01:00 73 26 124/90 94 Nasal Cannula 2.00 11/13/21 01:00 70 11/13/21 00:00 68 29 156/93 94 Nasal Cannula 2.00 11/12/21 23:59 94 Nasal Cannula 2.00 11/12/21 23:00 70 33 131/101 91 Nasal Cannula 2.00 11/12/21 22:00 75 38 138/80 92 Nasal Cannula 2.00 11/12/21 21:00 70 15 147/89 97 Nasal Cannula 2.00 11/12/21 20:39 36.2 11/12/21 20:35 80 93 21 11/12/21 20:00 78 25 125/73 93 Nasal Cannula 2.00 11/12/21 20:00 97 Nasal Cannula 2.00 11/12/21 19:00 87 25 121/77 95 Nasal Cannula 2.00 11/12/21 19:00 85 11/12/21 18:00 80 22 132/89 92 Nasal Cannula 2.00 11/12/21 17:32 81 11/12/21 17:20 Nasal Cannula 2.00 11/12/21 17:00 80 21 125/69 93 Nasal Cannula 2.00 I & O 11/13/21 07:00 Intake Total 1520 ml Output Total 600 ml Balance 920 ml Height & Weight Height: '" Weight: lbs. oz. kg; 37.74 BMI Method: General Appearance: No Apparent Distress, Anxious, Chronically ill, Obese HEENT: PERRL/EOMI, Normal ENT Inspection, Pharynx Normal Neck: Full Range of Motion, Normal Inspection, Non Tender, Supple, Carotid Bruit Respiratory: No Respiratory Distress, Accessory Muscle Use, Decreased Breath Sounds Cardiovascular: Regular Rate, Rhythm, No Edema, Normal Peripheral Pulses Extremity: Normal Capillary Refill, Normal Inspection, Normal Range of Motion, Non Tender, No Calf Tenderness, No Pedal Edema Neurologic/Psychiatric: Alert, Oriented x3, No Motor/Sensory Deficits, Normal Mood/Affect Skin: Normal Color, Warm/Dry Lymphatic: No Adenopathy Results Lab Laboratory Tests 11/12/21 17:37 11/13/21 04:07 Assessment/Plan Assessment/Plan See free text Critical Care: Ventilator Management CHRYSTAL BOWMAN MD Nov 13, 2021 10:16
--- NOTE | 2021-11-13 10:20 | Consultation-Cardiology ---
HPI-Cardiology Cardiology Consultation: Date of Consultation 11/13/2021 Date of Admission 11/12/2021 Attending Physician Calli Molina DO Admitting Physician Pam Molina DO Consulting Physician GARCE CARNEY JR, MD HPI: Time Seen by a Provider: 10:14 Chief Complaint: Reason for consultation: Hypertrophic cardiomyopathy. I had the pleasure of seeing Eloy this morning in the intensive care unit at [facility] in [place], [place]. He is an unvaccinated person who was diagnosed with COVID infection earlier this week. He also has a history of hypertrophic cardiomyopathy with a previous surgical as well as percutaneous myomectomy followed by paroxysmal atrial fibrillation with what he describes as 2 separate ablations in the past. He follows with a bus and trolley inspecting dispatcher at [facility] in [place] [address]. Last week he started feeling like he had an upper respiratory infection. The symptoms lasted for a couple of days then resolved. However, earlier this week he started having a cough with shortness of breath. He had general malaise. He went to the [facility] clinic in [place], [place] and had a COVID test which was positive. He was told to take [id number] medications for this and stay home and rest. However, over the next couple of days, his shortness of breath worsened. His cough persisted. He was having paroxysmal nocturnal dyspnea and orthopnea. Yesterday he went to [facility] emergency room and was then transferred to our facility for further treatment and evaluation. He denies any chest discomfort. When he had atrial fibrillation in the past, he would be very lightheaded and short of breath out of proportion to his level of exertion. He has not had any of these symptoms other than the shortness of breath from the COVID infection. He denies palpitations, syncope, or ankle edema. Because of his cardiac history, a cardiology consultation was requested. Certain portions of this document may have been dictated utilizing voice recognition technology. Inherent to this technology, typographical and grammatical errors may exist. As much as I am diligent to identify and correct these mistakes, some errors may remain in the document. Review of Systems-Cardiology Review of Systems Other comments Review of 10 organ systems is as per the history of present illness, otherwise negative. 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 Family Medical History Family Medical History: The patient does not know of any family history of premature coronary artery disease in first-degree relatives. Allergies and Home Medications Allergies Coded Allergies: No Known Drug Allergies (Unverified , 11/12/21) Patient Home Medication List Home Medication List Reviewed: Yes Metoprolol Succinate (Metoprolol Succinate) 100 Mg Tab.er.24h, 100 MG PO DAILY, (Reported) Entered as Reported by: CALLI MLOINA on 11/12/211838 Last Action: Continued Exam Vital Signs Vital Signs Date Time Temp Pulse Resp B/P (MAP) Pulse Ox O2 Delivery O2 Flow Rate FiO2 11/13/21 09:00 71 30 90 Room Air 11/13/21 08:08 35.8 11/13/21 07:00 135/80 2.00 11/12/21 20:35 21 Physical Exam Due to the patient's COVID status, I viewed the patient from the doorway. I did not approach the patient close enough to do a complete physical exam. General: The patient is not on a ventilator. He was sitting up in bed conversing comfortably. He is obese. HENT: Normocephalic. Atraumatic. Pulmonary: Breathing comfortably on no support devices. Skin: There is no pallor. Neurologic: Alert and oriented x3. Cranial nerves III through XII appear grossly intact. The patient has good motor tone in the upper and lower ex tremities bilaterally. Psychiatric: Pleasant and has a normal affect. Labs Laboratory Tests Test 11/12/21 17:37 11/12/21 18:05 11/12/21 20:13 11/13/21 04:07 Range/Units Sodium Level 133 L 134 L 135-145 MMOL/L Potassium Level 3.9 4.0 3.6-5.0 MMOL/L Chloride Level 101 103 98-107 MMOL/L Carbon Dioxide Level 21 20 L 21-32 MMOL/L Anion Gap 11 11 5-14 MMOL/L Blood Urea Nitrogen 10 12 7-18 MG/DL Creatinine 0.64 0.71 0.60-1.30 MG/DL Estimat Glomerular Filtration Rate 108 104 BUN/Creatinine Ratio 16 17 Glucose Level 130 H 138 H 70-105 MG/DL Calcium Level 8.2 L 8.1 L 8.5-10.1 MG/DL Blood Gas Puncture Site RRAD Blood Gas Patient Temperature 37 Arterial Blood pH 7.36 L 7.37-7.43 Arterial Blood Partial Pressure CO2 45 35-45 MMHG Arterial Blood Partial Pressure O2 33 *L 79-93 MMHG Arterial Blood HCO3 25 23-27 MMOL/L Arterial Blood Total CO2 25.9 21.0-31.0 MMOL/L Arterial Blood Oxygen Saturation 50 L 94-100 % Arterial Blood Base Excess -0.2 -2.5-2.5 MMOL/L Shaquille Test POS Blood Gas Ventilator Setting NO Blood Gas Inspired Oxygen 2 Glucometer 180 H 70-110 MG/DL White Blood Count 3.2 L 4.3-11.0 10^3/uL Red Blood Count 4.15 L 4.30-5.52 10^6/uL Hemoglobin 13.3 13.3-17.7 g/dL Hematocrit 38 L 40-54 % Mean Corpuscular Volume 91 80-99 fL Mean Corpuscular Hemoglobin 32 25-34 pg Mean Corpuscular Hemoglobin Concent 35 32-36 g/dL Red Cell Distribution Width 11.6 10.0-14.5 % Platelet Count 132 130-400 10^3/uL Mean Platelet Volume 10.9 9.0-12.2 fL Immature Granulocyte % (Auto) 0 % Neutrophils (%) (Auto) 63 42-75 % Lymphocytes (%) (Auto) 27 12-44 % Monocytes (%) (Auto) 10 0-12 % Eosinophils (%) (Auto) 0 0-10 % Basophils (%) (Auto) 0 0-10 % Neutrophils # (Auto) 2.0 1.8-7.8 10^3/uL Lymphocytes # (Auto) 0.9 L 1.0-4.0 10^3/uL Monocytes # (Auto) 0.3 0.0-1.0 10^3/uL Eosinophils # (Auto) 0.0 0.0-0.3 10^3/uL Basophils # (Auto) 0.0 0.0-0.1 10^3/uL Immature Granulocyte # (Auto) 0.0 0.0-0.1 10^3/uL Percent Immature Platelet Fraction 5.2 0.0-7.6 % Corrected Calcium 8.7 8.5-10.1 MG/DL Phosphorus Level 2.7 2.3-4.7 MG/DL Magnesium Level 2.1 1.6-2.4 MG/DL Total Bilirubin 0.9 0.1-1.0 MG/DL Aspartate Amino Transf (AST/SGOT) 63 H 5-34 U/L Alanine Aminotransferase (ALT/SGPT) 72 H 0-55 U/L Alkaline Phosphatase 115 40-136 U/L Total Protein 5.8 L 6.4-8.2 GM/DL Albumin 3.3 3.2-4.5 GM/DL Radiology ECHOCARDIOGRAM (11/13/2021): 1. Left ventricle: The cavity size is normal. There is severe concentric hypertrophy but more evident in the septum. Systolic function is normal. The estimated ejection fraction is 65-70%. There are no regional wall motion abnormalities identified. There is no evidence of systolic anterior motion of the mitral valve or significant elevation of the left ventricular outflow gradients. Features are consistent with a pseudonormal left ventricular filling pattern, with concomitant abnormal relaxation and increased filling pressure (grade 2 diastolic dysfunction). 2. Left atrium: The left atrium is severely dilated with a volume index of up to 58 mL/m. 3. Right atrium: The right atrium is severely dilated with an area of 32 cm. 4. Mitral valve: The annulus is mildly calcified. 5. Aortic valve: There is mild aortic valve sclerosis. 6. Pulmonary arteries: The pulmonary artery pressure cannot be estimated on this study due to inadequate tricuspid regurgitant envelope. ECG Impression ECG Comment Sinus rhythm with frequent premature ventricular complexes, first-degree AV block and nonspecific intraventricular conduction delay. Diagnosis/Problems Diagnosis/Problems (1) Hypertrophic cardiomyopathy Assessment & Plan: He seems to be asymptomatic with this and by his description had a previous surgical and then percutaneous myomectomy/septal reduction. The echocardiogram from today does not show any significant outflow obstruction. I will resume his metoprolol succinate. No additional cardiac testing is indicated at this time. He can follow-up with his regular bus and trolley inspecting dispatcher at the outside facility following discharge. (2) Paroxysmal atrial fibrillation Assessment & Plan: He has been in sinus rhythm with ventricular ectopy but no signs of atrial fibrillation. He has significant biatrial dilatation as noted on his echocardiogram from today. I have resumed his metoprolol succinate. He was not on any antiarrhythmic drug or oral anticoagulation at home. He states that his metal painter discontinued his oral anticoagulation in the past. He will continue to follow with his metal painter at the outside facility following discharge. (3) Primary hypertension Assessment & Plan: I have resumed his metoprolol succinate. (4) Mixed hyperlipidemia Assessment & Plan: I have ordered to resume atorvastatin and added a lipid panel to his previous blood sample. GRACE CARNEY JR, MD Nov 13, 2021 10:20
[2021-11-13] MEDS ORDERED: meTOprolol SUCCINATE 100 MG (TOPROL XL) TAB PO ONE (10:45)
[2021-11-13 10:51] LABS: TRIGLYCERIDES 88 MG/DL (<150); VLDL CHOLESTEROL 18 MG/DL (5-40)
[2021-11-13 10:57] LABS: CHOLESTEROL 150 MG/DL (< 200); HDL CHOLESTEROL 28 MG/DL (40-60)
[2021-11-13] MEDS: AZITHROMYCIN INJECTION 500 MG in NS (IVPB) 250 ML IV SCH (18:05)
[2021-11-13] MEDS: ENOXAPARIN 40 MG/0.4 ML (LOVENOX) SYR SC SCH (18:05)
[2021-11-13] MEDS: AtorvaSTATin TABLET 10 MG TABLET PO SCH (19:53)
[2021-11-14] MEDS: CEFEPIME INJECTION 1,000 MG in NS (IVPB) 50 ML IV SCH ×4 (02:00→21:51)
[2021-11-14] MEDS: ALPRAZolam 0.5 MG (XANAX) TAB PO PRN (02:02)
[2021-11-14] MEDS: inSUlin ASPART (NovoLOG) 1 UNIT/0.01 ML (CHARGE PER UNIT) SC SCH ×4 (06:12→21:51)
[2021-11-14 06:42] LABS: BASOPHILS % (AUTO) 0 % (0-10); EOSINOPHILS % (AUTO) 0 % (0-10); HEMATOCRIT 39 % (40-54); HEMOGLOBIN 13.3 g/dL (13.3-17.7); LYMPHOCYTES % (AUTO) 16 % (12-44); MEAN CORPUSCULAR HEMOGLOBIN 32 pg (25-34); MEAN CORPUSCULAR HGB CONC 35 g/dL (32-36); MEAN CORPUSCULAR VOLUME 92 fL (80-99); MEAN PLATELET VOLUME 11.1 fL (9.0-12.2); MONOCYTES # (AUTO) 0.5 10^3/uL (0.0-1.0); MONOCYTES % (AUTO) 8 % (0-12); NEUTROPHILS # (AUTO) 4.7 10^3/uL (1.8-7.8); NEUTROPHILS % (AUTO) 76 % (42-75); PLATELET COUNT 161 10^3/uL (130-400); WHITE BLOOD COUNT 6.2 10^3/uL (4.3-11.0)
[2021-11-14 06:54] LABS: ALBUMIN 3.3 GM/DL (3.2-4.5); POTASSIUM 4.1 MMOL/L (3.6-5.0)
[2021-11-14 06:55] LABS: CALCIUM 8.2 MG/DL (8.5-10.1)
[2021-11-14 06:56] LABS: TOTAL PROTEIN 5.8 GM/DL (6.4-8.2)
[2021-11-14 06:58] LABS: BILIRUBIN,TOTAL 0.7 MG/DL (0.1-1.0)
--- NOTE | 2021-11-14 06:59 | Progress Note ---
Subjective Date Seen by a Provider: Nov 14, 2021 Time Seen by a Provider: 11:45 Subjective/Events-last exam Patient doing a lot better Cough is about the same and lungs are more coarse today We will add Singulair and Claritin and inhaled corticosteroid Bowels are moving Urinating well Tolerating COVID-19 treatment Remains on 2-3 L of oxygen Review of Systems Pulmonary: Dyspnea, Cough Objective Exam Last Set of Vital Signs Vital Signs Date Time Temp Pulse Resp B/P (MAP) Pulse Ox O2 Delivery O2 Flow Rate FiO2 11/14/21 03:59 36.2 50 20 120/67 92 Nasal Cannula 1.00 11/12/21 20:35 21 Capillary Refill : Less Than 3 Seconds I&O Intake and Output 11/14/21 00:00 Intake Total 2970 ml Output Total 1175 ml Balance 1795 ml Intake Oral 2670 ml IV Total 300 ml Output Urine Total 1175 ml # Voids 3 General: Alert, Oriented X3, Cooperative, No Acute Distress Lungs: Other (Coarse breath sounds all jimenez) Heart: Regular Rate Psych/Mental Status: Mental Status NL Results Lab Laboratory Tests 11/13/21 10:52: Glucometer 155H 11/13/21 15:57: Glucometer 243H 11/13/21 17:38: Glucometer 140H 11/13/21 19:27: Glucometer 176H 11/14/21 05:57: Glucometer 131H 11/14/21 05:58: White Blood Count 6.2, Red Blood Count 4.19L, Hemoglobin 13.3, Hematocrit 39L, Mean Corpuscular Volume 92, Mean Corpuscular Hemoglobin 32, Mean Corpuscular Hemoglobin Concent 35, Red Cell Distribution Width 11.7, Platelet Count 161, Mean Platelet Volume 11.1, Immature Granulocyte % (Auto) 1, Neutrophils (%) (Auto) 76H, Lymphocytes (%) (Auto) 16, Monocytes (%) (Auto) 8, Eosinophils (%) (Auto) 0, Basophils (%) (Auto) 0, Neutrophils # (Auto) 4.7, Lymphocytes # (Auto) 1.0, Monocytes # (Auto) 0.5, Eosinophils # (Auto) 0.0, Basophils # (Auto) 0.0, Immature Granulocyte # (Auto) 0.0, Sodium Level 137, Potassium Level 4.1, Chloride Level 106, Carbon Dioxide Level 22, Anion Gap 9, Glucose Level 124H, Calcium Level 8.2L, Corrected Calcium 8.8, Total Bilirubin 0.7, Total Protein 5 .8L, Albumin 3.3 Assessment/Plan Assessment/Plan Assess & Plan/Chief Complaint Assessment: Acute hypoxic respiratory failure COVID-19 pneumonia Presumed DOMINIQUE undiagnosed Obesity BMI [address] [facility] Hypertension Plan: COVID-19 protocol May be a candidate for Actemra if progresses High risk for intubation Echo Cardiology appreciated eICU appreciated 11/13/2021: Supportive care Transfer to 4th floor Appreciate cardiology Oxygen wean 11/14/2021: Add Singulair and Claritin Much improved status Diagnosis/Problems Diagnosis/Problems (1) COVID (2) Hypertrophic cardiomyopathy (3) Obesity (BMI 30-39.9) (4) Hypertension (5) Hyperlipidemia (6) DOMINIQUE (obstructive sleep apnea) SHELBY ANSARI DO Nov 14, 2021 06:59
[2021-11-14 07:00] LABS: CREATININE SERUM 0.72 MG/DL (0.60-1.30)
[2021-11-14] MEDS: RT-ALBUTEROL HFA 8.5 GM INHALER IH SCH ×2 (07:32→21:43)
[2021-11-14] MEDS: SENNOSIDES 8.6 MG (SENOKOT) TAB PO SCH ×2 (07:56→21:51)
[2021-11-14] MEDS: guaiFENesin (MUCINEX) 600 MG TAB PO SCH ×2 (07:56→21:51)
[2021-11-14] MEDS: DOCUSATE SODIUM 100 MG (COLACE) CAP PO SCH ×2 (07:56→21:51)
[2021-11-14] MEDS: meTOprolol SUCCINATE 100 MG (TOPROL XL) TAB PO SCH (07:56)
[2021-11-14] MEDS ORDERED: ADVAIR HFA 115/21 MCG INHALER 8 GM IH SCH (12:45)
[2021-11-14] MEDS ORDERED: RT--FLUTICASONE/SALMETEROL 113-14 (AIRDUO RespiCLICK) IH SCH (12:49)
[2021-11-14] MEDS: MONTELUKAST 10 MG (SINGULAIR) TAB PO SCH (13:00)
[2021-11-14] MEDS: AZITHROMYCIN INJECTION 500 MG in NS (IVPB) 250 ML IV SCH (16:35)
[2021-11-14] MEDS: ENOXAPARIN 40 MG/0.4 ML (LOVENOX) SYR SC SCH (16:35)
[2021-11-14] MEDS: RT--FLUTICASONE/SALMETEROL 113-14 (AIRDUO RespiCLICK) IH SCH (21:42)
[2021-11-14] MEDS: ALPRAZolam 0.5 MG (XANAX) TAB PO SCH (21:51)
[2021-11-14] MEDS: AtorvaSTATin TABLET 10 MG TABLET PO SCH (21:52)
[2021-11-14] MEDS: MELATONIN 3 MG TABLET PO SCH (21:52)
[2021-11-15] MEDS: CEFEPIME INJECTION 1,000 MG in NS (IVPB) 50 ML IV SCH ×2 (03:11→07:58)
[2021-11-15] MEDS: inSUlin ASPART (NovoLOG) 1 UNIT/0.01 ML (CHARGE PER UNIT) SC SCH ×4 (06:21→21:31)
[2021-11-15 06:32] LABS: BASOPHILS % (AUTO) 0 % (0-10); EOSINOPHILS % (AUTO) 0 % (0-10); HEMATOCRIT 38 % (40-54); HEMOGLOBIN 13.2 g/dL (13.3-17.7); LYMPHOCYTES # (AUTO) 1.2 10^3/uL (1.0-4.0); LYMPHOCYTES % (AUTO) 17 % (12-44); MEAN CORPUSCULAR HEMOGLOBIN 31 pg (25-34); MEAN CORPUSCULAR HGB CONC 35 g/dL (32-36); MEAN CORPUSCULAR VOLUME 90 fL (80-99); MEAN PLATELET VOLUME 10.5 fL (9.0-12.2); MONOCYTES # (AUTO) 0.6 10^3/uL (0.0-1.0); MONOCYTES % (AUTO) 9 % (0-12); NEUTROPHILS # (AUTO) 4.8 10^3/uL (1.8-7.8); NEUTROPHILS % (AUTO) 72 % (42-75); PLATELET COUNT 160 10^3/uL (130-400); WHITE BLOOD COUNT 6.7 10^3/uL (4.3-11.0)
[2021-11-15 07:02] LABS: BILIRUBIN,TOTAL 0.6 MG/DL (0.1-1.0); CALCIUM 8.1 MG/DL (8.5-10.1); CREATININE SERUM 0.66 MG/DL (0.60-1.30); TOTAL PROTEIN 5.3 GM/DL (6.4-8.2)
[2021-11-15] MEDS: RT-ALBUTEROL HFA 8.5 GM INHALER IH SCH ×2 (07:41→19:00)
[2021-11-15] MEDS: RT--FLUTICASONE/SALMETEROL 113-14 (AIRDUO RespiCLICK) IH SCH ×2 (07:41→19:01)
[2021-11-15] MEDS: MONTELUKAST 10 MG (SINGULAIR) TAB PO SCH (08:01)
[2021-11-15] MEDS: DOCUSATE SODIUM 100 MG (COLACE) CAP PO SCH ×2 (08:01→21:00)
[2021-11-15] MEDS: guaiFENesin (MUCINEX) 600 MG TAB PO SCH ×2 (08:01→21:30)
[2021-11-15] MEDS: SENNOSIDES 8.6 MG (SENOKOT) TAB PO SCH ×2 (08:01→21:00)
[2021-11-15] MEDS: meTOprolol SUCCINATE 100 MG (TOPROL XL) TAB PO SCH ×2 (08:01→08:50)
--- NOTE | 2021-11-15 08:49 | Cardiology Progress Note ---
Progress Note-Cardiology Events since last exam Date Seen by Provider: Nov 15, 2021 Time Seen by Provider: 08:44 Events since last exam I am following him due to hypertrophic cardiomyopathy and paroxysmal atrial fibrillation in the setting of active Covid infection. He is now on the medical floor. When I saw the patient, he was sitting up in bed eating breakfast. He is still on supplemental oxygen by nasal cannula. He feels like his breathing is improved. He denies chest discomfort, palpitations, syncope, or ankle edema. He has started to rethink his thoughts about whether or not he will get a Covid vaccine once he has recovered from active infection. Certain portions of this document may have been dictated utilizing voice recognition technology. Inherent to this technology, typographical and grammatical errors may exist. As much as I am diligent to identify and correct these mistakes, some errors may remain in the document. Vitals Last set of Vitals Signs Vital Signs 11/12/21 11/15/21 11/15/21 20:35 04:34 07:47 Temp 35.8 Pulse 51 Resp 20 B/P (MAP) 138/84 Pulse Ox 97 O2 Delivery Nasal Cannula O2 Flow Rate 3.00 FiO2 21 Labs Labs Laboratory Tests 11/15/21 06:11 Exam Vital Signs Vital Signs Date Time Temp Pulse Resp B/P (MAP) Pulse Ox O2 Delivery O2 Flow Rate FiO2 11/15/21 07:47 97 Nasal Cannula 3.00 11/15/21 04:34 35.8 51 20 138/84 11/12/21 20:35 21 Physical Exam Due to the patient's COVID status, I viewed the patient from the doorway. General: The patient is not on a ventilator. He is wearing supplemental oxygen by nasal cannula. HENT: Normocephalic. Atraumatic. Skin: There is no pallor. Neurologic: Oriented x3. Cranial nerves III through XII grossly intact. Moving all 4 extremities. Psychiatric: Appears cooperative. Labs Laboratory Tests Test 11/14/21 11:08 11/14/21 15:16 11/14/21 20:57 11/15/21 06:10 Range/Units Glucometer 204 H 243 H 215 H 115 H 70-110 MG/DL Test 11/15/21 06:11 Range/Units White Blood Count 6.7 4.3-11.0 10^3/uL Red Blood Count 4.21 L 4.30-5.52 10^6/uL Hemoglobin 13.2 L 13.3-17.7 g/dL Hematocrit 38 L 40-54 % Mean Corpuscular Volume 90 80-99 fL Mean Corpuscular Hemoglobin 31 25-34 pg Mean Corpuscular Hemoglobin Concent 35 32-36 g/dL Red Cell Distribution Width 11.8 10.0-14.5 % Platelet Count 160 130-400 10^3/uL Mean Platelet Volume 10.5 9.0-12.2 fL Immature Granulocyte % (Auto) 2 % Neutrophils (%) (Auto) 72 42-75 % Lymphocytes (%) (Auto) 17 12-44 % Monocytes (%) (Auto) 9 0-12 % Eosinophils (%) (Auto) 0 0-10 % Basophils (%) (Auto) 0 0-10 % Neutrophils # (Auto) 4.8 1.8-7.8 10^3/uL Lymphocytes # (Auto) 1.2 1.0-4.0 10^3/uL Monocytes # (Auto) 0.6 0.0-1.0 10^3/uL Eosinophils # (Auto) 0.0 0.0-0.3 10^3/uL Basophils # (Auto) 0.0 0.0-0.1 10^3/uL Immature Granulocyte # (Auto) 0.1 0.0-0.1 10^3/uL Sodium Level 138 135-145 MMOL/L Potassium Level 4.0 3.6-5.0 MMOL/L Chloride Level 107 98-107 MMOL/L Carbon Dioxide Level 23 21-32 MMOL/L Anion Gap 8 5-14 MMOL/L Blood Urea Nitrogen 13 7-18 MG/DL Creatinine 0.66 0.60-1.30 MG/DL Estimat Glomerular Filtration Rate 107 BUN/Creatinine Ratio 20 Glucose Level 105 70-105 MG/DL Calcium Level 8.1 L 8.5-10.1 MG/DL Corrected Calcium 8.9 8.5-10.1 MG/DL Total Bilirubin 0.6 0.1-1.0 MG/DL Aspartate Amino Transf (AST/SGOT) 53 H 5-34 U/L Alanine Aminotransferase (ALT/SGPT) 111 H 0-55 U/L Alkaline Phosphatase 104 40-136 U/L Total Protein 5.3 L 6.4-8.2 GM/DL Albumin 3.0 L 3.2-4.5 GM/DL Diagnosis/Problems Diagnosis/Problems (1) Hypertrophic cardiomyopathy Assessment & Plan: He seems to be asymptomatic with this and by his description had a previous surgical and then percutaneous myomectomy/septal reduction. The echocardiogram from this admission does not show any significant outflow obstruction. I had resumed his metoprolol succinate at the previous dose but then the nurse held this yesterday due to heart rate in the 50s. It appears he received the medication later in the day. He does not normally check his vital signs at home. I was thinking of decreasing the dose to 50 mg daily but since he has been taking 100 mg daily for quite some time, I will leave him on metoprolol succinate at 100 mg daily. No additional cardiac testing is indicated at this time. He can follow-up with his regular manager wind at [facility] in [place], [place] following discharge. (2) Paroxysmal atrial fibrillation Assessment & Plan: He has been in sinus rhythm with ventricular ectopy but no signs of atrial fibrillation. He has significant biatrial dilatation as noted on his echocardiogram from this admission. This could be an indication that he may be having silent atrial fibrillation. I have resumed his metoprolol succinate. He was not on any antiarrhythmic drug or oral anticoagulation at home. He states that his garden equipment mechanic discontinued his oral anticoagulation in the past. He will continue to follow with his garden equipment mechanic at the outside facility following discharge. (3) Primary hypertension Assessment & Plan: Blood pressure is reasonably controlled on the metoprolol succinate. (4) Mixed hyperlipidemia Assessment & Plan: I resumed his outpatient dose of atorvastatin. He was taking this every other day but I ordered half of his outpatient dose to be given once daily. He does have mild elevation of the transaminase levels but not 3 times greater than normal. Therefore, it should be safe to continue the atorvastatin. Exact etiology of the elevated transaminase levels is unclear. GRACE CARNEY JR, MD Nov 15, 2021 08:49
[2021-11-15] MEDS ORDERED: meTOprolol SUCCINATE 100 MG (TOPROL XL) TAB PO SCH (09:00)
--- NOTE | 2021-11-15 11:32 | Occupational Therapy Eval ---
OT Evaluation-General/PLF Medical Diagnosis Admission Date Nov 12, 2021 at 15:52 Medical Diagnosis: COVID-19 Onset Date: Nov 12, 2021 Therapy Diagnosis Therapy Diagnosis: N/A Precautions Precautions/Isolations: Airborne Isolation, Contact Isolation, Droplet Isolation Referral Physician: Larry Romero Reason: Evaluation/Treatment Medical History Additional Medical History asthma, COPD, hypertrophic cardiomyopathy Current History Presents to [facility] with acute hypoxic respiratory failure, COVID-19, unvaccinated. Transferred to [facility] for higher level of care. Social History Current Living Status: Spouse ADL-Prior Level of Function SCALE: Activities may be completed with or without assistive devices. 5-Cgdeohnfzr-uveuquw completes the activity by him/herself with no assistance from a helper. 5-Set-up or Clean-up Assistance-helper sets up or cleans up; patient completes activity. Largo assists only prior to or following the activity. 4-Supervision or Touching Assistance-helper provides verbal cues and/or touching/steadying and/or contact guard assistance as patient completes activity. Assistance may be provided throughout the activity or intermittently. 3-Partial/Moderate Assistance-helper does LESS THAN HALF the effort. Largo lifts, holds or supports trunk or limbs, but provides less than half the effort. 2-Substantial/Maximal Assistance-helper does MORE THAN HALF the effort. Largo lifts or holds trunk or limbs and provides more than half the effort. 4-Gsdyuscvs-uahjbp does ALL the effort. Patient does none of the effort to complete the activity. Or, the assistance of 2 or more helpers is required for the patient to complete the activity. If activity was not attempted, code reason: 7-Patient Refused. 9-Not Applicable-not attempted and the patient did not perform the activity before the current illness, exacerbation or injury. 10-Not Attempted due to Environmental Limitations-(lack of equipment, weather restraints, etc.). 88-Not Attempted due to Medical Conditions or Safety Concerns. ADL PLOF Comments Pt reports IND with ADLs and functional mobility, no AD/AE. Self Care: Independent Functional Cognition: Independent OT Current Status Subjective Pt in bed, agreeable to OT Tx. Mental Status/Objective Patient Orientation: Person, Place, Time, Situation Attachments: Oxygen Current Upper Extremity ROM WFL Upper Extremity Strength WFL ADL-Treatment Eating (QC): 6 (Per pt report.) Shower/Bathe Self (QC): 5 (Per pt report.) Toileting Hygiene (QC): 6 (Per pt report.) Other Treatments Pt in bed, transferred supine to sit EOB independently, then performed functional mobility around his room, no AD independently. Pt picked up phone yarding supervisor from tray table, then got down in quadruped position on the floor in order to plug yarding supervisor into the bed. He got up from the floor independently. Pt walked around his bed, then transferred back to bed independently. Pt states he is able to go to the bathroom independently and took a shower yesterday without assistance. Pt is currently at PLOF. Post tx, pt in bed, call light in reach and all needs met. Education OT Patient Education: Correct positioning, Modified ADL techniques, Progress toward Goal/Update tx plan, Purpose of tx/functional activities, Rehab process Teaching Recipient: Patient Teaching Methods: Discussion Response to Teaching: Verbalize Understanding OT Snf Goals Snf Goals 1=Demonstrate adherence to instructed precautions during ADL tasks. 2=Patient will verbalize/demonstrate understanding of assistive devices/modifications for ADL. 3=Patient will improve strength/tolerance for activity to enable patient to perform ADL's. OT Education/Plan Problem List/Assessment Assessment: No Skilled OT Needs ID'd No skilled OT services indicated at this time, as pt is independent with ADLs and functional mobility, no AD/AE and is at PLOF. Discharge Recommendations Plan/Recommendations: Discharge/Goals Met Treatment Plan/Plan of Care Patient would benefit from OT for education, treatment and training to promote independence in ADL's, mobility, safety and/or upper extremity function for ADL's. Plan of Care: ADL Retraining, Functional Mobility Treatment Duration: Nov 15, 2021 Frequency: 1 time per week (eval only) Estimated Hrs Per Day: .25 hour per day Rehab Potential: Good Time/GCodes Start Time: 11:05 Stop Time: 11:15 Total Time Billed (hr/min): 10 Billed Treatment Time 1FAN ADDISON OT Nov 15, 2021 11:32
--- NOTE | 2021-11-15 11:52 | Physical Therapy Progress Note ---
Therapy Progress Note Order for PT jeanette received. Patient states he has no trouble getting around in his room and doesn't feel any weakness at this time. Patient states he ambulates about his room and goes to the restroom by himself without difficulty. Patient states he sees no need for PT at this time. We will DC patient from therapy services at this time. Told patient that if he does start to experience any weakness or difficulty with mobility to let his nurse know and we can re turn. EBONIE EVANS PT Nov 15, 2021 11:52
--- NOTE | 2021-11-15 12:14 | Progress Note ---
BRYNN UMANA 11/15/21 1214: Subjective Date Seen by a Provider: Nov 15, 2021 Time Seen by a Provider: 08:30 Subjective/Events-last exam This is a 61 y/o male with a hx of COPD and T2DM on hospital day #4 for an exacerbation of COPD, complicated by COVID pneumonia. NAEON. Pt states that he is feeling better today and currently has no complaints. He states that he has been moving his bowel and bladder well, and reports a good appetite. He denies fever, chills, nausea, abdominal pain, or dyspnea. He has been satting well at 90% on 3L NC. Review of Systems General: No Chills, No Night Sweats HEENT: No Head Aches, No Visual Changes, No Ear Pain, No Dysphasia, No Sore Throat Pulmonary: No Dyspnea; Cough Cardiovascular: No: Chest Pain, Palpitations Gastrointestinal: No: Nausea, Vomiting, Abdominal Pain, Diarrhea, Constipation Genitourinary: No Dysuria, No Frequency Neurological: No: Confusion Objective Exam Last Set of Vital Signs Vital Signs Date Time Temp Pulse Resp B/P (MAP) Pulse Ox O2 Delivery O2 Flow Rate FiO2 11/15/21 08:00 90 Nasal Cannula 3.00 11/15/21 08:00 35.7 62 20 129/65 11/12/21 20:35 21 Capillary Refill : Less Than 3 Seconds I&O Intake and Output 11/15/21 00:00 Intake Total 1800 ml Balance 1800 ml Intake Oral 1800 ml # Voids 5 General: Alert, Oriented X3, Cooperative, No Acute Distress HEENT: Atraumatic, PERRLA, EOMI Neck: Supple Lungs: Normal Air Movement Heart: Regular Rate, No Murmurs, Gallops Abdomen: Soft, No Tenderness Extremities: No Cyanosis Skin: No Rashes Neuro: Normal Speech Results Lab Laboratory Tests 11/14/21 15:16: Glucometer 243H 11/14/21 20:57: Glucometer 215H 11/15/21 06:10: Glucometer 115H 11/15/21 06:11: White Blood Count 6.7, Red Blood Count 4.21L, Hemoglobin 13.2L, Hematocrit 38L, Mean Corpuscular Volume 90, Mean Corpuscular Hemoglobin 31, Mean Corpuscular Hemoglobin Concent 35, Red Cell Distribution Width 11.8, Platelet Count 160, Mean Platelet Volume 10.5, Immature Granulocyte % (Auto) 2, Neutrophils (%) (Auto) 72, Lymphocytes (%) (Auto) 17, Monocytes (%) (Auto) 9, Eosinophils (%) (Auto) 0, Basophils (%) (Auto) 0, Neutrophils # (Auto) 4.8, Lymphocytes # (Auto) 1.2, Monocytes # (Auto) 0.6, Eosinophils # (Auto) 0.0, Basophils # (Auto) 0.0, Immature Granulocyte # (Auto) 0.1, Sodium Level 138, Potassium Level 4.0, Chloride Level 107, Carbon Dioxide Level 23, Anion Gap 8, Blood Urea Nitrogen 13, Creatinine 0.66, Estimat Glomerular Filtration Rate 107, BUN/Creatinine Ratio 20, Glucose Level 105, Calcium Level 8.1L, Corrected Calcium 8.9, Total Bilirubin 0.6, Aspartate Amino Transf (AST/SGOT) 53H, Alanine Aminotransferase (ALT/SGPT) 111H, Alkaline Phosphatase 104, Total Protein 5.3L, Albumin 3.0L Assessment/Plan Assessment/Plan Assess & Plan/Chief Complaint This is a 61 y/o male with a hx of COPD and T2DM on hospital day #4 for an exacerbation of COPD, complicated by COVID pneumonia. He has been progressing well with treatment to this point, and is nearing time for discharge. Diagnosis/Problems Diagnosis/Problems (1) COPD exacerbation Status: Acute Assessment & Plan: - likely 2/2 COVID-19 pneumonia - currently satting 90% on 3 L NC - c/w steroids and azithro through 11/16/2021 - c/w RCAT, IS. Resume home inhalers when appropriate. - goal O2 sat 88-92% (2) Hypertension Status: Chronic Assessment & Plan: - Continue Metoprolol Qualifiers: Qualified Codes: I10 - Essential (primary) hypertension (3) Hyperlipidemia Status: Chronic Assessment & Plan: Continue statin Qualifiers: Qualified Codes: E78.2 - Mixed hyperlipidemia CALLI MOLINA DO 11/16/21 0534: Subjective Subjective/Events-last exam Pt much approved On 3.5 L of oxygen PT and OT will be ordered Overall feels like he is doing better Lungs are much improved no coarseness at all Completing antibiotics Review of Systems General: Fatigue Pulmonary: Dyspnea, Cough Objective Exam General: Alert, Oriented X3, Cooperative, No Acute Distress Lungs: Normal Air Movement Neuro: Normal Gait Psych/Mental Status: Mental Status NL Assessment/Plan Assessment/Plan Assess & Plan/Chief Complaint DC planned Home O2 eval Monitor closely Supervisory-Addendum Brief Verification & Attestation Participated in pt care: history, MDM, physical Personally performed: exam, history, MDM, supervision of care Care discussed with: Medical Student Procedures: n/a Results interpretation: Verified all documentation Verification and Attestation of Medical Student E/M Service A medical student performed and documented this service in my presence. I reviewed and verified all information documented by the medical student and made modifications to such information, when appropriate. I personally performed the physical exam and medical decision making. Calli Molina, Nov 16, 2021,05:32 BRYNN UMANA Nov 15, 2021 12:14 CALLI MOLINA DO Nov 16, 2021 05:34
[2021-11-15] MEDS ORDERED: UBID100C17 PO (12:39)
[2021-11-15] MEDS ORDERED: ATOR20TA66 PO (12:39)
[2021-11-15] MEDS ORDERED: FISH1CAP15 PO (12:39)
[2021-11-15] MEDS ORDERED: LUTE20TA PO (12:39)
[2021-11-15] MEDS ORDERED: MULT-1136 PO (12:39)
[2021-11-15] MEDS ORDERED: ZINC50TA58 PO (12:39)
[2021-11-15] MEDS: ENOXAPARIN 40 MG/0.4 ML (LOVENOX) SYR SC SCH (16:49)
[2021-11-15] MEDS: AtorvaSTATin TABLET 10 MG TABLET PO SCH (21:30)
[2021-11-15] MEDS: ALPRAZolam 0.5 MG (XANAX) TAB PO SCH (21:31)
[2021-11-15] MEDS: MELATONIN 3 MG TABLET PO SCH (21:31)
[2021-11-16 04:07] VITALS: BP 123/82
[2021-11-16] MEDS: inSUlin ASPART (NovoLOG) 1 UNIT/0.01 ML (CHARGE PER UNIT) SC SCH (05:40)
[2021-11-16] MEDS: RT-ALBUTEROL HFA 8.5 GM INHALER IH SCH (07:24)
[2021-11-16] MEDS: RT--FLUTICASONE/SALMETEROL 113-14 (AIRDUO RespiCLICK) IH SCH (07:25)
[2021-11-16 07:47] LABS: BASOPHILS % (AUTO) 0 % (0-10); EOSINOPHILS % (AUTO) 0 % (0-10); HEMATOCRIT 40 % (40-54); LYMPHOCYTES # (AUTO) 1.8 10^3/uL (1.0-4.0); LYMPHOCYTES % (AUTO) 27 % (12-44); MEAN CORPUSCULAR HEMOGLOBIN 31 pg (25-34); MEAN CORPUSCULAR HGB CONC 35 g/dL (32-36); MEAN CORPUSCULAR VOLUME 90 fL (80-99); MEAN PLATELET VOLUME 10.4 fL (9.0-12.2); MONOCYTES # (AUTO) 0.6 10^3/uL (0.0-1.0); MONOCYTES % (AUTO) 9 % (0-12); NEUTROPHILS # (AUTO) 4.1 10^3/uL (1.8-7.8); NEUTROPHILS % (AUTO) 62 % (42-75); PLATELET COUNT 219 10^3/uL (130-400); WHITE BLOOD COUNT 6.7 10^3/uL (4.3-11.0)
--- NOTE | 2021-11-16 07:58 | Diagnostic Imaging Report ---
INDICATION: Covid pneumonia. Follow-up. EXAMINATION: Chest 11/16/2021 COMPARISON: 11/12/2021 FINDINGS: There are diffuse bilateral infiltrates, more so on the left. Finding similar to previous imaging. There are no effusions. There is no pneumothorax. Sternotomy wires noted. There is cardiomegaly. Pulmonary vasculature normal. IMPRESSION: 1. Persistent diffuse bilateral infiltrates. Dictated by: Dictated on workstation # [id number]
[2021-11-16 08:03] LABS: ALBUMIN 3.1 GM/DL (3.2-4.5); BILIRUBIN,TOTAL 0.8 MG/DL (0.1-1.0); CALCIUM 8.3 MG/DL (8.5-10.1); CREATININE SERUM 0.65 MG/DL (0.60-1.30); POTASSIUM 4.1 MMOL/L (3.6-5.0); TOTAL PROTEIN 5.7 GM/DL (6.4-8.2)
[2021-11-16] MEDS: guaiFENesin (MUCINEX) 600 MG TAB PO SCH (08:15)
[2021-11-16] MEDS: MONTELUKAST 10 MG (SINGULAIR) TAB PO SCH (08:15)
[2021-11-16] MEDS: SENNOSIDES 8.6 MG (SENOKOT) TAB PO SCH (08:16)
[2021-11-16] MEDS: meTOprolol SUCCINATE 100 MG (TOPROL XL) TAB PO SCH (08:16)
[2021-11-16] MEDS: DOCUSATE SODIUM 100 MG (COLACE) CAP PO SCH (08:17)
[2021-11-16] MEDS ORDERED: GUAI600T43 PO (08:30)
[2021-11-16] MEDS ORDERED: MONT-40 PO (08:30)
[2021-11-16] MEDS ORDERED: DEXA6TAB6 PO (08:30)
[2021-11-16] MEDS ORDERED: FLUT1AER4 IH (08:30)
--- NOTE | 2021-11-16 08:31 | Discharge Summary ---
Diagnosis/Chief Complaint Date of Admission Nov 12, 2021 at 15:52 Date of Discharge Discharge Date: Nov 16, 2021 Discharge Diagnosis Assessment: Acute hypoxic respiratory failure COVID-19 pneumonia Presumed DOMINIQUE undiagnosed Obesity BMI [address] [facility] Hypertension Elevated blood sugar hemoglobin A1c 6.0 likely due to steroids Discharge Summary Discharge Physical Examination Allergies: Uncoded Allergies: FLU VACCINE (Allergy, Mild, 11/14/21) UNSURE OF REACTION TO THIS VACCINE Vitals & I&Os Vital Signs Date Time Temp Pulse Resp B/P (MAP) Pulse Ox O2 Delivery O2 Flow Rate FiO2 11/16/21 11:00 36.4 62 20 136/91 92 Room Air 1.00 11/16/21 04:07 24 General Appearance: Alert, Oriented X3, Cooperative Respiratory: Clear to Auscultation Cardiovascular: Regular Rate Neuro: Normal Gait, Normal Speech, Strength at 5/5 X4 Ext Psych/Mental Status: Mental Status NL Hospital Course Was the Problem List Reviewed?: Yes Pt had an uneventful 5 day hospital course after admitted for Covid-19 pneumonia with acute hypoxic respiratory failure. With a history of cardiomyopathy hypertrophic type. He was placed in ICU precautionary. 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 Pt was started on all those home medications in addition to IV antibiotics empirically and IV steroids. Oxygen supplementation was maintained and he was able to be weaned off completely and was discharged in improved condition. Labs (last 24 hrs) Laboratory Tests 11/12/21 17:37: Sodium Level 133L, Potassium Level 3.9, Chloride Level 101, Carbon Dioxide Level 21, Anion Gap 11, Blood Urea Nitrogen 10, Creatinine 0.64, Estimat Glomerular Filtration Rate 108, BUN/Creatinine Ratio 16, Glucose Level 130H, Calcium Level 8.2L 11/12/21 18:05: Blood Gas Puncture Site RRAD, Blood Gas Patient Temperature 37, Arterial Blood pH 7.36L, Arterial Blood Partial Pressure CO2 45, Arterial Blood Partial Pressure O2 33*L, Arterial Blood HCO3 25, Arterial Blood Total CO2 25.9, Arterial Blood Oxygen Saturation 50L, Arterial Blood Base Excess -0.2, Shaquille Test POS, Blood Gas Ventilator Setting NO, Blood Gas Inspired Oxygen 2 11/12/21 20:13: Glucometer 180H 11/13/21 04:07: Sodium Level 134L, Potassium Level 4.0, Chloride Level 103, Carbon Dioxide Level 20L, Anion Gap 11, Blood Urea Nitrogen 12, Creatinine 0.71, Estimat Glomerular Filtration Rate 104, BUN/Creatinine Ratio 17, Glucose Level 138H, Calcium Level 8.1L, White Blood Count 3.2L, Red Blood Count 4.15L, Hemoglobin 13.3, Hematocrit 38L, Mean Corpuscular Volume 91, Mean Corpuscular Hemoglobin 32, Mean Corpuscular Hemoglobin Concent 35, Red Cell Distribution Width 11.6, Platelet Count 132, Mean Platelet Volume 10.9, Immature Granulocyte % (Auto) 0, Neutrophils (%) (Auto) 63, Lymphocytes (%) (Auto) 27, Monocytes (%) (Auto) 10, Eosinophils (%) (Auto) 0, Basophils (%) (Auto) 0, Neutrophils # (Auto) 2.0, Lymphocytes # (Auto) 0.9L, Monocytes # (Auto) 0.3, Eosinophils # (Auto) 0.0, Basophils # (Auto) 0.0, Immature Granulocyte # (Auto) 0.0, Percent Immature Platelet Fraction 5.2, Mean Blood Glucose 126, Hemoglobin A1c 6.0H, Corrected Calcium 8.7, Phosphorus Level 2.7, Magnesium Level 2.1, Total Bilirubin 0.9, Aspartate Amino Transf (AST/SGOT) 63H, Alanine Aminotransferase (ALT/SGPT) 72H, Alkaline Phosphatase 115, Total Protein 5.8L, Albumin 3.3, Triglycerides Level 88, Cholesterol Level 150, LDL Cholesterol Direct 113, VLDL Cholesterol 18, HDL Cholesterol 28L 11/13/21 10:52: Glucometer 155H 11/13/21 15:57: Glucometer 243H 11/13/21 17:38: Glucometer 140H 11/13/21 19:27: Glucometer 176H 11/14/21 05:57: Glucometer 131H 11/14/21 05:58: White Blood Count 6.2, Red Blood Count 4.19L, Hemoglobin 13.3, Hematocrit 39L, Mean Corpuscular Volume 92, Mean Corpuscular Hemoglobin 32, Mean Corpuscular Hemoglobin Concent 35, Red Cell Distribution Width 11.7, Platelet Count 161, Flory n Platelet Volume 11.1, Immature Granulocyte % (Auto) 1, Neutrophils (%) (Auto) 76H, Lymphocytes (%) (Auto) 16, Monocytes (%) (Auto) 8, Eosinophils (%) (Auto) 0, Basophils (%) (Auto) 0, Neutrophils # (Auto) 4.7, Lymphocytes # (Auto) 1.0, Monocytes # (Auto) 0.5, Eosinophils # (Auto) 0.0, Basophils # (Auto) 0.0, Immature Granulocyte # (Auto) 0.0, Sodium Level 137, Potassium Level 4.1, Chloride Level 106, Carbon Dioxide Level 22, Anion Gap 9, Blood Urea Nitrogen 15, Creatinine 0.72, Estimat Glomerular Filtration Rate 104, BUN/Creatinine Ratio 21, Glucose Level 124H, Calcium Level 8.2L, Corrected Calcium 8.8, Total Bilirubin 0.7, Aspartate Amino Transf (AST/SGOT) 61H, Alanine Aminotransferase (ALT/SGPT) 94H, Alkaline Phosphatase 113, Total Protein 5.8L, Albumin 3.3 11/14/21 11:08: Glucometer 204H 11/14/21 15:16: Glucometer 243H 11/14/21 20:57: Glucometer 215H 11/15/21 06:10: Glucometer 115H 11/15/21 06:11: White Blood Count 6.7, Red Blood Count 4.21L, Hemoglobin 13.2L, Hematocrit 38L, Mean Corpuscular Volume 90, Mean Corpuscular Hemoglobin 31, Mean Corpuscular H emoglobin Concent 35, Red Cell Distribution Width 11.8, Platelet Count 160, Mean Platelet Volume 10.5, Immature Granulocyte % (Auto) 2, Neutrophils (%) (Auto) 72, Lymphocytes (%) (Auto) 17, Monocytes (%) (Auto) 9, Eosinophils (%) (Auto) 0, Basophils (%) (Auto) 0, Neutrophils # (Auto) 4.8, Lymphocytes # (Auto) 1.2, Monocytes # (Auto) 0.6, Eosinophils # (Auto) 0.0, Basophils # (Auto) 0.0, Immature Granulocyte # (Auto) 0.1, Sodium Level 138, Potassium Level 4.0, Chloride Level 107, Carbon Dioxide Level 23, Anion Gap 8, Blood Urea Nitrogen 13, Creatinine 0.66, Estimat Glomerular Filtration Rate 107, BUN/Creatinine Ratio 20, Glucose Level 105, Calcium Level 8.1L, Corrected Calcium 8.9, Total Bilirubin 0.6, Aspartate Amino Transf (AST/SGOT) 53H, Alanine Aminotransferase (ALT/SGPT) 111H, Alkaline Phosphatase 104, Total Protein 5.3L, Albumin 3.0L 11/15/21 12:07: Glucometer 271H 11/15/21 16:18: Glucometer 156H 11/15/21 20:11: Glucometer 243H 11/16/21 05:38: Glucometer 94 11/16/21 07:30: White Blood Count 6.7, Red Blood Count 4.46, Hemoglobin 14.0, Hematocrit 40, Mean Corpuscular Volume 90, Mean Corpuscular Hemoglobin 31, Mean Corpuscular Hemoglobin Concent 35, Red Cell Distribution Width 11.8, Platelet Count 219, Mean Platelet Volume 10.4, Immature Granulocyte % (Auto) 3, Neutrophils (%) (Auto) 62, Lymphocytes (%) (Auto) 27, Monocytes (%) (Auto) 9, Eosinophils (%) (Auto) 0, Basophils (%) (Auto) 0, Neutrophils # (Auto) 4.1, Lymphocytes # (Auto) 1.8, Monocytes # (Auto) 0.6, Eosinophils # (Auto) 0.0, Basophils # (Auto) 0.0, Immature Granulocyte # (Auto) 0.2H, Sodium Level 138, Potassium Level 4.1, Chloride Level 105, Carbon Dioxide Level 24, Anion Gap 9, Blood Urea Nitrogen 12, Creatinine 0.65, Estimat Glomerular Filtration Rate 107, BUN/Creatinine Ratio 18, Glucose Level 97, Calcium Level 8.3L, Corrected Calcium 9.0, Total Bilirubin 0.8, Aspartate Amino Transf (AST/SGOT) 44H, Alanine Aminotransferase (ALT/SGPT) 120H, Alkaline Phosphatase 105, Total Protein 5.7L, Albumin 3.1L 11/16/21 10:09: Glucometer 200H Pending Labs Laboratory Tests 11/12/21 17:37: Sodium Level 133, Potassium Level 3.9, Chloride Level 101, Carbon Dioxide Level 21, Anion Gap 11, Blood Urea Nitrogen 10, Creatinine 0.64, Estimat Glomerular Filtration Rate 108, BUN/Creatinine Ratio 16, Glucose Level 130, Calcium Level 8.2 11/12/21 18:05: Blood Gas Puncture Site RRAD, Blood Gas Patient Temperature 37, Arterial Blood pH 7.36, Arterial Blood Partial Pressure CO2 45, Arterial Blood Partial Pressure O2 33, Arterial Blood HCO3 25, Arterial Blood Total CO2 25.9, Arterial Blood Oxygen Saturation 50, Arterial Blood Base Excess -0.2, Shaquille Test POS, Blood Gas Ventilator Setting NO, Blood Gas Inspired Oxygen 2 11/12/21 20:13: Glucometer 180 11/13/21 04:07: Sodium Level 134, Potassium Level 4.0, Chloride Level 103, Carbon Dioxide Level 20, Anion Gap 11, Blood Urea Nitrogen 12, Creatinine 0.71, Estimat Glomerular Filtration Rate 104, BUN/Creatinine Ratio 17, Glucose Level 138, Calcium Level 8.1, White Blood Count 3.2, Red Blood Count 4.15, Hemoglobin 13.3, Hematocrit 38, Mean Corpuscular Volume 91, Mean Corpuscular Hemoglobin 32, Mean Corpuscular Hemoglobin Concent 35, Red Cell Distribution Width 11.6, Platelet Count 132, Mean Platelet Volume 10.9, Immature Granulocyte % (Auto) 0, Neutrophils (%) (Auto) 63, Lymphocytes (%) (Auto) 27, Monocytes (%) (Auto) 10, Eosinophils (%) (Auto) 0, Basophils (%) (Auto) 0, Neutrophils # (Auto) 2.0, Lymphocytes # (Auto) 0.9, Monocytes # (Auto) 0.3, Eosinophils # (Auto) 0.0, Basophils # (Auto) 0.0, Immature Granulocyte # (Auto) 0.0, Percent Immature Platelet Fraction 5.2, Mean Blood Glucose 126, Hemoglobin A1c 6.0, Corrected Calcium 8.7, Phosphorus Level 2.7, Magnesium Level 2.1, Total Bilirubin 0.9, Aspartate Amino Transf (AST/SGOT) 63, Alanine Aminotransferase (ALT/SGPT) 72, Alkaline Phosphatase 115, Total Protein 5.8, Albumin 3.3, Triglycerides Level 88, Cholesterol Level 150, LDL Cholesterol Direct 113, VLDL Cholesterol 18, HDL Cholesterol 28 11/13/21 10:52: Glucometer 155 11/13/21 15:57: Glucometer 243 11/13/21 17:38: Glucometer 140 11/13/21 19:27: Glucometer 176 11/14/21 05:57: Glucometer 131 11/14/21 05:58: White Blood Count 6.2, Red Blood Count 4.19, Hemoglobin 13.3, Hematocrit 39, Mean Corpuscular Volume 92, Mean Corpuscular Hemoglobin 32, Mean Corpuscular Hemoglobin Concent 35, Red Cell Distribution Width 11.7, Platelet Count 161, Mean Platelet Volume 11.1, Immature Granulocyte % (Auto) 1, Neutrophils (%) (Auto) 76, Lymphocytes (%) (Auto) 16, Monocytes (%) (Auto) 8, Eosinophils (%) (Auto) 0, Basophils (%) (Auto) 0, Neutrophils # (Auto) 4.7, Lymphocytes # (Auto) 1.0, Monocytes # (Auto) 0.5, Eosinophils # (Auto) 0.0, Basophils # (Auto) 0.0, Immature Granulocyte # (Auto) 0.0, Sodium Level 137, Potassium Level 4.1, Chloride Level 106, Carbon Dioxide Level 22, Anion Gap 9, Blood Urea Nitrogen 15, Creatinine 0.72, Estimat Glomerular Filtration Rate 104, BUN/Creatinine Ratio 21, Glucose Level 124, Calcium Level 8.2, Corrected Calcium 8.8, Total Bilirubin 0.7, Aspartate Amino Transf (AST/SGOT) 61, Alanine Aminotransferase (ALT/SGPT) 94, Alkaline Phosphatase 113, Total Protein 5.8, Albumin 3.3 11/14/21 11:08: Glucometer 204 11/14/21 15:16: Glucometer 243 11/14/21 20:57: Glucometer 215 11/15/21 06:10: Glucometer 115 11/15/21 06:11: White Blood Count 6.7, Red Blood Count 4.21, Hemoglobin 13.2, Hematocrit 38, Mean Corpuscular Volume 90, Mean Corpuscular Hemoglobin 31, Mean Corpuscular Hemoglobin Concent 35, Red Cell Distribution Width 11.8, Platelet Count 160, Mean Platelet Volume 10.5, Immature Granulocyte % (Auto) 2, Neutrophils (%) (Auto) 72, Lymphocytes (%) (Auto) 17, Monocytes (%) (Auto) 9, Eosinophils (%) (Auto) 0, Basophils (%) (Auto) 0, Neutrophils # (Auto) 4.8, Lymphocytes # (Auto) 1.2, Monocytes # (Auto) 0.6, Eosinophils # (Auto) 0.0, Basophils # (Auto) 0.0, Immature Granulocyte # (Auto) 0.1, Sodium Level 138, Potassium Level 4.0, Chloride Level 107, Carbon Dioxide Level 23, Anion Gap 8, Blood Urea Nitrogen 13, Creatinine 0.66, Estimat Glomerular Filtration Rate 107, BUN/Creatinine Rat io 20, Glucose Level 105, Calcium Level 8.1, Corrected Calcium 8.9, Total Bilirubin 0.6, Aspartate Amino Transf (AST/SGOT) 53, Alanine Aminotransferase (ALT/SGPT) 111, Alkaline Phosphatase 104, Total Protein 5.3, Albumin 3.0 11/15/21 12:07: Glucometer 271 11/15/21 16:18: Glucometer 156 11/15/21 20:11: Glucometer 243 11/16/21 05:38: Glucometer 94 11/16/21 07:30: White Blood Count 6.7, Red Blood Count 4.46, Hemoglobin 14.0, Hematocrit 40, Mean Corpuscular Volume 90, Mean Corpuscular Hemoglobin 31, Mean Corpuscular Hemoglobin Concent 35, Red Cell Distribution Width 11.8, Platelet Count 219, Mean Platelet Volume 10.4, Immature Granulocyte % (Auto) 3, Neutrophils (%) (Auto) 62, Lymphocytes (%) (Auto) 27, Monocytes (%) (Auto) 9, Eosinophils (%) (Auto) 0, Basophils (%) (Auto) 0, Neutrophils # (Auto) 4.1, Lymphocytes # (Auto) 1.8, Monocytes # (Auto) 0.6, Eosinophils # (Auto) 0.0, Basophils # (Auto) 0.0, Immature Granulocyte # (Auto) 0.2, Sodium Level 138, Potassium Level 4.1, Chloride Level 105, Carbon Dioxide Level 24, Anion Gap 9, Blood Urea Nitrogen 12, Creatinine 0.65, Estimat Glomerular Filtration Rate 107, BUN/Creatinine Ratio 18, Glucose Level 97, Calcium Level 8.3, Corrected Calcium 9.0, Total Bilirubin 0.8, Aspartate Amino Transf (AST/SGOT) 44, Alanine Aminotransferase (ALT/SGPT) 120, Alkaline Phosphatase 105, Total Protein 5.7, Albumin 3.1 11/16/21 10:09: Glucometer 200 Discharge Home Medications: Active Scripts Active Proair Hfa (Albuterol Sulfate) 1 Puff Puff 2 Puff IH QID 1 PUFF = 90 MCG Decadron (Dexamethasone) 6 Mg Tablet 6 Mg PO DAILY Mucinex (Guaifenesin) 600 Mg Tab.er.12h 600 Mg PO BID Montelukast Sodium 10 Mg Tablet 10 Mg PO DAILY Fluticasone-Salmeterol 113-14 (Fluticasone/Salmeterol) 1 Each Aer.pow.ba 0 Each IH RTBID Reported Zinc 50 Mg Tablet 50 Mg PO DAILY Coq-10 (Ubidecarenone) 100 Mg Capsule 100 Mg PO DAILY Lutein 20 Mg Tablet 20 Mg PO DAILY Multivitamin 1 Each Tablet 1 Each PO DAILY Fish Oil 1,200 mg Fish Oil (Fish Oil/Dha/Epa) 1 Each Capsule 1 Each PO DAILY Atorvastatin Calcium 20 Mg Tablet 10 Mg PO DAILY TAKES OF A 20MG TAB Metoprolol Succinate 100 Mg Tab.er.24h 100 Mg PO DAILY Instructions to patient/family Please see electronic discharge instructions given to patient. Diagnosis/Problems Diagnosis/Problems (1) COVID (2) Hypertrophic cardiomyopathy Status: Chronic (3) Obesity (BMI 30-39.9) (4) Hypertension Status: Chronic Qualifiers: Qualified Codes: I10 - Essential (primary) hypertension (5) Hyperlipidemia Status: Chronic Qualifiers: Qualified Codes: E78.2 - Mixed hyperlipidemia (6) DOMINIQUE (obstructive sleep apnea) SHELBY ANSARI DO Nov 16, 2021 08:31
[2021-11-16] MEDS ORDERED: RT-ALBUINH IH (09:44)
--- NOTE | 2021-11-16 10:50 | Progress Note ---
BRYNN UMANA 11/16/21 1050: Progress Note Patient Name: Eloy Stover Admission Date: 11/12/21 Discharge Date: 11/16/21 Attending Physician: Calli Ansari DO Admitting Diagnosis: Acute hypoxic respiratory failure Discharge Diagnosis: Acute hypoxic respiratory failure, COVID-19 pneumonia Consultations: TeleICU Procedures: none Complications: none Hospital Course: Eloy Stover, a 61 year old male patient presented to the [facility] ER for complaints of acute hypoxic respiratory failure. Ultimately, he was admitted to the ICU for acute hypoxic respiratory failure secondary to COVID-19 pneumonia. Consulted TeleICU for critical care management, as the patient has a history of hypertrophic cardiomyopathy and warranted a higher level of care. Continued appropriate evaluation and management on the ICU service and they progressed well there, leading to a transfer to Med/Surg. He was monitored and treated according to consulting specialists recommendations and the standard of care. Symptoms were managed well with decadron, azithromycin, cefepime, IV fluid replacement, and supplemental oxygen. No evidence of AMS or end organ dysfunction were noted during this admission. No episodes of oxygen desaturations at rest or during exertion requiring more aggressive noninvasive ventilation or invasive ventilation devices were observed. No signs or symptoms of pathological bleeding were noted. He was evaluated for their problems and deemed appropriate for outpatient follow-up. Upon the day of dismissal the patient was in agreement with the plan. The patient was noted by providers, nursing, and/or ancillary staff members to be tolerating the appropriate diet, having bowel movement(s), ambulating, oxygenating, and communicating at their prior baseline prior to dismissal. All questions were answered prior to the patient's dismissal. They will need to follow up with their PCP for post hospitalization evaluation. On dismissal the patient was encouraged to return to an emergency department if their symptoms/problems persist and/or worsen. Discharge Plan: Discharge to Home Condition upon Discharge: Stable Activity: As tolerated Diet: CALLI Zee DO 11/17/21 0526: Supervisory-Addendum Brief Verification & Attestation Participated in pt care: history, MDM, physical Personally performed: exam, history, MDM, supervision of care Care discussed with: Medical Student Procedures: n/a Results interpretation: Verified all documentation Verification and Attestation of Medical Student E/M Service A medical student performed and documented this service in my presence. I reviewed and verified all information documented by the medical student and made modifications to such information, when appropriate. I personally performed the physical exam and medical decision making. Calli Ansari, Nov 17, 2021,05:25 BRYNN UMANA Nov 16, 2021 10:50 CALLI ANSARI DO Nov 17, 2021 05:26
[2021-11-16 11:00] VITALS: BP 136/91
== END 2021-11-16 11:00 | disposition home or self-care (01) | DRG 177 ==
LOC: EDSEX → ICU 15:52 → 4TH 11-13 17:00
PROVIDERS: ADMIT Internal Medicine; ATTEND Internal Medicine
DX: U07.1 COVID-19 (principal); J12.82 Pneumonia due to coronavirus disease 2019; J96.01 Acute respiratory failure with hypoxia; I42.2 Other hypertrophic cardiomyopathy; J44.9 Chronic obstructive pulmonary disease, unspecified; E66.9 Obesity, unspecified; Z68.37 Body mass index [BMI] 37.0-37.9, adult; I10 Essential (primary) hypertension; G47.33 Obstructive sleep apnea (adult) (pediatric); Z73.0 Burn-out; E11.9 Type 2 diabetes mellitus without complications; T38.0X5A Adverse effect of glucocorticoids and synthetic analogues, initial encounter; I48.0 Paroxysmal atrial fibrillation; E78.2 Mixed hyperlipidemia
CPT/HCPCS: 36415; 71045; 71275; 80048; 80053; 80061; 82805; 82947; 83036; 83735; 84100; 85025; 93005; 93306; 94640; 94760; 94761

== ENCOUNTER 2022-07-15 19:08 | Emergency (ER) | payer OTHER ==
[~2022-07-15 19:08] MED LIST: ATOR20TA66 PO; DEXA6TAB6 PO; FISH1CAP15 PO; FLUT1AER4 IH; GUAI600T43 PO; LUTE20TA PO; MONT-40 PO; MTP100TCR PO; MULT-1136 PO; RT-ALBUINH IH; UBID100C17 PO; ZINC50TA58 PO
[2022-07-15] MEDS ORDERED: ONDANSETRON 4 MG/2 ML (SDV) Z0FRAN ONE (19:18)
[2022-07-15 19:26] LABS: BASOPHILS % (AUTO) 0 % (0-10); EOSINOPHILS % (AUTO) 0 % (0-10); HEMATOCRIT 47 % (40-54); HEMOGLOBIN 17.1 g/dL (13.3-17.7); LYMPHOCYTES # (AUTO) 2.2 10^3/uL (1.0-4.0); LYMPHOCYTES % (AUTO) 22 % (12-44); MEAN CORPUSCULAR HEMOGLOBIN 32 pg (25-34); MEAN CORPUSCULAR HGB CONC 37 g/dL (32-36); MEAN CORPUSCULAR VOLUME 88 fL (80-99); MEAN PLATELET VOLUME 10.3 fL (9.0-12.2); MONOCYTES # (AUTO) 0.6 10^3/uL (0.0-1.0); MONOCYTES % (AUTO) 6 % (0-12); NEUTROPHILS # (AUTO) 7.1 10^3/uL (1.8-7.8); NEUTROPHILS % (AUTO) 71 % (42-75); PLATELET COUNT 148 10^3/uL (130-400)
[2022-07-15] MEDS ORDERED: ONDANSETRON 4 MG/2 ML (SDV) Z0FRAN IVP ONE (19:30)
[2022-07-15 19:34] LABS: PROTHROMBIN TIME PATIENT 13.7 SEC (12.2-14.7)
--- NOTE | 2022-07-15 19:36 | ED General ---
General Chief Complaint: Neuro-Stroke Like Symptoms Stated Complaint: R SIDE WEAKNESS Source of Information: Patient, EMS History of Present Illness Date Seen by Provider: Jul 15, 2022 Time Seen by Provider: 19:08 Initial Comments 62-year-old male presenting with complaints of dizziness and headache with nausea and vomiting since around 4 AM. He states he woke up with the symptoms. Then around 5:30 PM he had tingling to the right side of his body. He initially felt like some weakness was present as well but that has resolved. He continues to have tingling especially in his hand on the right side. He denies any head trauma. He has no change in vision, chest pain, abdominal pain, fever, chills, cough, recent illness. He does feel like he is short of breath. He states he has a history of hypertrophic cardiomyopathy and atrial fibrillation but has had ablation for that previously. He denies taking any blood thinners. With movement he has increased dizziness and nausea with vomiting. He states that he has not eaten today but did drink some fluids. Severity: Moderate Modifying Factors: worse with Movement (Movement makes his dizziness and nausea with vomiting worse) Associated Systoms: No Chest Pain, No Cough, No Diaphoresis, No Fever/Chills; Headaches (right sided); No Loss of Appetite; Nausea/Vomiting (with dizziness and movement); No Rash, No Seizure; Shortness of Air; No Syncope; Weakness (felt like he had weakness to right side around 1730 but has resolved) Allergies and Home Medications Allergies Uncoded Allergies: FLU VACCINE (Allergy, Mild, 11/14/21) UNSURE OF REACTION TO THIS VACCINE Patient Home Medication List Home Medication List Reviewed: Yes Albuterol Sulfate (Proair Hfa) 1 Puff Puff, 2 PUFF IH QID Prescribed by: SHELBY ANSARI on 11/16/21 0944 Atorvastatin Calcium (Atorvastatin Calcium) 20 Mg Tablet, 10 MG PO DAILY, (Reported) Entered as Reported by: MARAH FIGUEORA on 11/15/21 1239 Dexamethasone (Decadron) 6 Mg Tablet, 6 MG PO DAILY Prescribed by: SHELBY ANSARI on 11/16/21 0830 Fish Oil/Dha/Epa (Fish Oil 1,200 mg Fish Oil) 1 Each Capsule, 1 EACH PO DAILY, (Reported) Entered as Reported by: MARAH FIGUEROA on 11/15/21 1239 Fluticasone/Salmeterol (Fluticasone-Salmeterol 113-14) 1 Each Aer.pow.ba, 0 EACH IH RTBID Prescribed by: SHELBY ANSARI on 11/16/21 0830 Guaifenesin (Mucinex) 600 Mg Tab.er.12h, 600 MG PO BID Prescribed by: SHELBY ANSARI on 11/16/21 0830 Lutein (Lutein) 20 Mg Tablet, 20 MG PO DAILY, (Reported) Entered as Reported by: MARAH FIGUEROA on 11/15/21 1239 Metoprolol Succinate (Metoprolol Succinate) 100 Mg Tab.er.24h, 100 MG PO DAILY, (Reported) Entered as Reported by: SHELBY ANSARI on 11/12/21 1839 Montelukast Sodium (Montelukast Sodium) 10 Mg Tablet, 10 MG PO DAILY Prescribed by: SHELBY ANSARI on 11/16/21 0830 Multivitamin (Multivitamin) 1 Each Tablet, 1 EACH PO DAILY, (Reported) Entered as Reported by: MARAH FIGUEROA on 11/15/21 1239 Ubidecarenone (Coq-10) 100 Mg Capsule, 100 MG PO DAILY, (Reported) Entered as Reported by: MARAH FIGUEROA on 11/15/21 1239 Zinc (Zinc) 50 Mg Tablet, 50 MG PO DAILY, (Reported) Entered as Reported by: MARAH FIGUEROA on 11/15/21 1239 Review of Systems Review of Systems Constitutional: see HPI EENTM: No ear discharge, No ear pain, No blurred vision, No vision loss, No epistaxis, No nose congestion Respiratory: short of breath Cardiovascular: No chest pain Gastrointestinal: see HPI Genitourinary: no symptoms reported Musculoskeletal: no symptoms reported Skin: No rash Psychiatric/Neurological: See HPI Hematologic/Lymphatic: Denies Blood Clots Past Zedwmqa-Ygmuwg-Crdjzv Hx Patient Social History Tobacco Use?: No Use of E-Cig and/or Vaping dev: No Substance use?: No Alcohol Use?: No Pt feels they are or have been: No Past Medical History Surgery/Hospitalization HX: Atrial Fibrillation with prior ablation, Hypertrophic Cardiomyopathy, Hypercholesterolemia, Hypertension Respiratory: Yes Asthma Cardiac: Yes Atrial Fibrillation, Cardiomyopathy, Coronary Artery Disease, High Cholesterol, Hypertension Physical Exam Vital Signs Vital Signs - First Documented 07/15/22 19:13 Temp 36.3 Pulse 121 Resp 20 B/P (MAP) 164/94 (117) Pulse Ox 92 O2 Delivery Room Air Capillary Refill : Height, Weight, BMI Height: '" Weight: lbs. oz. kg; 37.74 BMI Method: General Appearance: Anxious, Mild Distress (dry heaves and vomiting, especially with movement of head or ED cot) Eyes: Bilateral Eye PERRL, Bilateral Eye EOMI HEENT: Pharynx Normal, Moist Mucous Membranes Neck: Full Range of Motion, Normal Inspection, Non Tender, Supple Respiratory: Chest Non Tender, Lungs Clear, Normal Breath Sounds, No Accessory Muscle Use, No Respiratory Distress Cardiovascular: Normal Peripheral Pulses, Irregularly Irregular, Tachycardia Gastrointestinal: Normal Bowel Sounds, No Pulsatile Mass, Non Tender, Soft Rectal: Deferred Extremity: Normal Capillary Refill, Normal Inspection, Normal Range of Motion, No Pedal Edema Neurologic/Psychiatric: Alert, Oriented x3, Facial Droop (mild right sided facial weakness with loss of nasolabial fold), Sensory Deficit (states right side feels different with tingling compared to left side) Skin: Normal Color, Warm/Dry Progress/Results/Core Measures Suspected Sepsis SIRS Temperature: Pulse: Respiratory Rate: Laboratory Tests 07/15/22 19:15: White Blood Count 10.0 Blood Pressure / Mean: Laboratory Tests 07/15/22 19:15: Creatinine 0.74, INR Comment 1.0, Platelet Count 148, Total Bilirubin 1.8H Results/Orders Lab Results Laboratory Tests Test 07/15/22 19:15 07/15/22 19:23 07/15/22 19:36 Range/Units White Blood Count 10.0 4.3-11.0 10^3/uL Red Blood Count 5.32 4.30-5.52 10^6/uL Hemoglobin 17.1 13.3-17.7 g/dL Hematocrit 47 40-54 % Mean Corpuscular Volume 88 80-99 fL Mean Corpuscular Hemoglobin 32 25-34 pg Mean Corpuscular Hemoglobin Concent 37 H 32-36 g/dL Red Cell Distribution Width 12.3 10.0-14.5 % Platelet Count 148 130-400 10^3/uL Mean Platelet Volume 10.3 9.0-12.2 fL Immature Granulocyte % (Auto) 0 % Neutrophils (%) (Auto) 71 42-75 % Lymphocytes (%) (Auto) 22 12-44 % Monocytes (%) (Auto) 6 0-12 % Eosinophils (%) (Auto) 0 0-10 % Basophils (%) (Auto) 0 0-10 % Neutrophils # (Auto) 7.1 1.8-7.8 10^3/uL Lymphocytes # (Auto) 2.2 1.0-4.0 10^3/uL Monocytes # (Auto) 0.6 0.0-1.0 10^3/uL Eosinophils # (Auto) 0.0 0.0-0.3 10^3/uL Basophils # (Auto) 0.0 0.0-0.1 10^3/uL Immature Granulocyte # (Auto) 0.0 0.0-0.1 10^3/uL Prothrombin Time 13.7 12.2-14.7 SEC INR Comment 1.0 0.8-1.4 Activated Partial Thromboplast Time 25 24-35 SEC Sodium Level 142 135-145 MMOL/L Potassium Level 4.5 3.6-5.0 MMOL/L Chloride Level 106 98-107 MMOL/L Carbon Dioxide Level 22 21-32 MMOL/L Anion Gap 14 5-14 MMOL/L Blood Urea Nitrogen 16 7-18 MG/DL Creatinine 0.74 0.60-1.30 MG/DL Estimat Glomerular Filtration Rate 102 BUN/Creatinine Ratio 22 Glucose Level 135 H 70-105 MG/DL Calcium Level 9.7 8.5-10.1 MG/DL Corrected Calcium 8.5-10.1 MG/DL Total Bilirubin 1.8 H 0.1-1.0 MG/DL Aspartate Amino Transf (AST/SGOT) 25 5-34 U/L Alanine Aminotransferase (ALT/SGPT) 43 0-55 U/L Alkaline Phosphatase 116 40-136 U/L Troponin I < 0.30 <0.30 NG/ML Total Protein 7.2 6.4-8.2 GM/DL Albumin 4.8 H 3.2-4.5 GM/DL Lipase 18 8-78 U/L Influenza Type A (RT-PCR) Not Detected Not Detecte Influenza Type B (RT-PCR) Not Detected Not Detecte SARS-CoV-2 RNA (RT-PCR) Not Detected Not Detecte Glucometer 149 H 70-110 MG/DL My Orders Orders - ENYART,TAMICA E MD Ondansetron Injection (Zofran Injectio (07/15/22 19:30) Ondansetron Injection (Zofran Injectio (07/15/22 19:18) Cbc With Automated Diff (07/15/22 19:20) Protime With Inr (07/15/22 19:20) Partial Thromboplastin Time (07/15/22 19:20) Comprehensive Metabolic Panel (07/15/22 19:20) Troponin I Fs (07/15/22 19:20) Ua Culture If Indicated (07/15/22 19:20) Chest 1 View Ap/Pa Only (07/15/22 19:20) Ekg Tracing (07/15/22 19:20) Nothing By Mouth (07/15/22 Dinner) Accucheck Stat ONCE (07/15/22 19:20) Ed Iv/Invasive Line Start (07/15/22 19:20) Vital Signs Stroke Patient Q15M (07/15/22 19:20) Ct Head Wo-R/O Stroke (07/15/22 19:20) O2 (07/15/22 19:20) Monitor-Rhythm Ecg Trace Only (07/15/22 19:20) Dysphagia Screening Tool Q10MX1 (07/15/22 19:20) Lipase (07/15/22 19:20) Covid 19 Inhouse Test (07/15/22 19:20) Influenza A And B By Pcr (07/15/22 19:20) Isolation Central Supply Req (07/15/22 19:20) Promethazine Injection (Phenergan Injec (07/15/22 19:51) Ct Angio Head/Neck (07/15/22 19:54) Iohexol Injection (Omnipaque 350 Mg/Ml 1 (07/15/22 20:00) Received Contrast (Hold Metformin- Contr (07/15/22 20:00) Sodium Chloride Flush (Catheter Flush Sy (07/15/22 20:00) Ns (Ivpb) (Sodium Chloride 0.9% Ivpb Bag (07/15/22 20:00) Enoxaparin Injection (Lovenox Injection) (07/15/22 21:14) Medications Given in ED Current Medications Medications Dose Ordered Sig/Aime Route Start Time Stop Time Status Last Admin Dose Admin Iohexol 100 ml ONCE ONCE IV 07/15/22 20:00 07/15/22 20:01 DC 07/15/22 20:12 75 ML Ondansetron HCl 4 mg ONCE ONCE IVP 07/15/22 19:30 07/15/22 19:31 DC 07/15/22 19:26 4 MG Sodium Chloride 10 ml NEEDED PRN IV 07/15/22 20:00 07/15/22 20:12 10 ML Sodium Chloride 100 ml ONCE ONCE IV 07/15/22 20:00 07/15/22 20:01 DC 07/15/22 20:12 100 ML Vital Signs/I&O 07/15/22 07/15/22 07/15/22 19:13 21:33 21:58 Temp 36.3 Pulse 121 97 102 Resp 20 16 20 B/P (MAP) 164/94 (117) 146/92 141/97 Pulse Ox 92 93 93 O2 Delivery Room Air Room Air Capillary Refill : Progress Note #1: Progress Note NIHSS performed on arrival and he had a 2 with 1 off for tingling and decreased sensation to right side and 1 off for slight loss of nasolabial fold on right side of face. Obtain ECG to look for ischemia and document his rhythm, playground monitor to watch his rate and rhythm, chest xray to look for pneumonia, infiltrate, effusion, pneumothorax. CT head without contrast to evaluate for stroke, mass, bleeding, edema, midline shift with his complaint of right sided t ingling and weakness earlier around 1730 as well as headache with dizziness and nausea/vomiting since 4 am. Labs and urine to check for infection, anemia, electrolyte imbalance, heart attack, heart failure, renal failure, hepatic failure, UTI, coagulopathy. Zofran 4 mg IV to help with nausea/vomiting. Patient states his lathing supervisor is Dr. Crockett from [facility] Progress Note #2: Time: 19:53 Progress Note CBC and chemistry are stable without acute significant abnormality. His troponin is less than 0.3. He does have elevation of his total bilirubin to 1.8. His glucose was slightly elevated to 135. He had normal coags. His influenza and COVID swab were both negative. CT scan of his head did not show a ny acute process for his symptoms. Chest x-ray showed cardiomegaly with some early edema. There is no infiltrate or effusion. Will add on CT angiogram of head and neck to look for possible large vessel occlusion, aneurysm, signs of stroke. Since still having dizziness, nausea, vomiting despite 2 doses of Zofran, 4 mg IV from EMS and 4 mg IV here in ED, will try Promethazine 25 mg IV x 1. When reviewing results and findings with patient and family, his reports that he now has a hoarseness to his voice that was not there earlier this evening. He is having some dysarthria now after getting Promethazine. This could be due to the sedating effect of the anti-emetic. His hoarseness may be due to his dry heaves with EMS and then active vomiting here in the ED. Once the CT angiogram is back I will contact Stroke Neurologist customer solutions specialist for consultation. At this point, he does not seem to be a candidate for tPA with onset of dizziness and n/v with headache at 4 am upon waking up. His other symptoms of right sided tingling and weakness started around 1730 but the weakness resolved and now just slight tingling to right side. Progress Note #3: Progress Note 2030 Dr. Deya Adam from Radiology called with findings of V4 segment of Right vertebral artery having occlusion without ischemic changes to brain. 203 I spoke with LOCO Park, at [facility] and gave her basic information on the stroke patient. She will get transfer doctor and stroke doctor on line and call me back. I updated patient and family of findings and that instead of calling Stroke doctor I called [facility] directly as the patient gets routine care through the [facility] system. Discussed that he might need to be flown by helicopter if they are wanting to do any radiology or treatment interventions. Counseled that unless instructed to give tPA by Neurologist I would defer that as he had increased risk of bleeding and causing more problems with his symptoms starting at 4 am and additional symptoms at 1730. 2040 I spoke with transfer doctor, Dr. Gomez, and neurologist, Dr. Aguilar, from [facility]. I gave them a summary of the patient and his symptoms and timing of symptoms. Dr. Aguilar advised that he would not be a tPA candidate at this time and Interventional Radiology will not be able do anything with the Vertebral artery segment. He advised routine stroke work up and MRI but did not recommend anti-coagulation for his recurrent paroxysmal atrial fibrillation or his stroke symptoms until an MRI could confirm a stroke. They will look to see what the bed status is in the [facility] and call back. Initially I had advised pt and family that he might need to be flown if they are doing any intervention emergently so that he could get there potentially quicker than ground transport. Although, with Neurology stating that the patient would not be a candidate for emergent interventions or tPA in interest of time sensitive diagnosis will contact air helicopter for transport. 2107 Dr. Gomez called back and after speaking with hospitalist he requested pt get at least a dose of Lovenox 1 mg/kg prior to transport. 2215 Helicopter ambulance crew leaving with patient to go to [facility]. Anticipate approximately 30 min transport time to [facility] on [address]. ECG Initial ECG Impression Date: Jul 15, 2022 Initial ECG Impression Time: 19:14 Initial ECG Rate: 120 Initial ECG Rhythm: A Fib/Flutter Initial ECG Comparisson: Changed (Atrial fibrillation with RVR present ton vs Oct 2021 having sinus rhythm with LBBB and PVCs) Comment Atrial fibrillation with rapid ventricular response and heart rate 120 bpm. Intraventricular conduction delay. QT interval 350 ms with a QTc interval 421 ms. There is no acute ST elevation. Compared to October 2021 he now is in atrial fibrillation where he was sinus rhythm with LBBB and PVCs in October 2021 Diagnostic Imaging Diagonstic Imaging: Xray Plain Films/CT/US/NM/MRI: chest Comments [facility], [facility]. [place], [place] NAME: LILLIAN SHELDON [facility] REC#: [id number] PT STATUS: REG ER : 1960 PHYSICIAN: TAMICA TOURE MD ADMIT DATE: 07/15/22/ER FS Signed Date of Exam:07/15/22 CHEST 1 VIEW AP/PA ONLY EXAMINATION: Chest 1 view. HISTORY: Shortness of breath. Atrial fibrillation. Right-sided weakness. COMPARISON: 11/16/2021. FINDINGS: The lung volumes are normal. No focal consolidation is seen. Scattered prominent interstitial markings are seen in the lungs. No large pleural effusion or pneumothorax is seen. The cardiomediastinal silhouette is prominent with post-CABG changes. No acute osseous abnormality is seen. IMPRESSION: Cardiomegaly with possible early edema. No focal consolidation or pleural effusion. Dictated by: Dictated on workstation # [id number] Dict: 07/15/221938 Trans: 07/15/221942 [facility] [id number] Interpreted by: DEYA ADAM DO Electronically signed by: DEYA ADAM DO 07/15/221942 Reviewed: Reviewed by Fl Diagonstic Imaging: CT Plain Films/CT/US/NM/MRI: head Comments NAME: LILLIAN SHELDON MED REC#: [id number] PT STATUS: REG ER : 1960 PHYSICIAN: TAMICA TOURE MD ADMIT DATE: 07/15/22/ER FS Signed Date of Exam:07/15/22 CT HEAD WO-R/O STROKE EXAMINATION: CT head without contrast. TECHNIQUE: Multiple contiguous axial images were obtained through the brain without the use of intravenous contrast. All CT scans use one or more of the following dose optimizing techniques: automated exposure control, MA and/or KvP adjustment based on patient size and exam type or iterative reconstruction. HISTORY: Dizziness. Right-sided headache. COMPARISON: None available. FINDINGS: No large acute territorial ischemia, mass or hemorrhage. No midline shift or mass effect. The ventricles, cortical sulci and basilar cisterns are patent and unremarkable. The orbits are normal. Paranasal sinuses are normal. Mastoid air cells are clear. No soft tissue abnormality is seen. No osseus lesions or fractures are seen. IMPRESSION: No large acute territorial ischemia, mass or hemorrhage. If symptoms persist, consider MRI of the brain to further evaluate. Dictated by: Dictated on workstation # [id number] Dict: 07/15/221934 Trans: 07/15/221942 [facility] [id number] Interpreted by: DEYA ADAM DO Electronically signed by: DEYA ADAM DO 07/15/221942 Reviewed: Reviewed by Fl Diagonstic Imaging: CT (angiography) Plain Films/CT/US/NM/MRI: head (and neck) Comments [facility] [place] NAME: LILLIAN SHELDON [facility] REC#: [id number] PT STATUS: REG ER : 1960 PHYSICIAN: TAMICA TOURE MD ADMIT DATE: 07/15/22/ER FS Signed Date of Exam:07/15/22 CT ANGIO HEAD/NECK PROCEDURE: CT angiography of the head and CT angiography of the neck with and without contrast. TECHNIQUE: Contiguous noncontrast images were obtained from the skull base through the vertex. After intravenous contrast administration, helical CT angiography of the neck was performed. Source data was reformatted into 3D MIP projections. Delayed post contrast acquisition was also obtained. Auto Exposure Controls were utilized during the CT exam to meet ALARA standards for radiation dose reduction. INDICATION: Dizziness. Right side weakness. Headache. COMPARISON: CT head performed earlier the same date. FINDINGS: CTA NECK: The visualized portions of the aortic arch demonstrate no evidence of aneurysm or dissection. There is conventional branching pattern of the great vessels of the aorta. The brachiocephalic artery is normal in course and caliber. The right and left common carotid origins are unremarkable. The origin of the left subclavian artery is patent. The common carotid arteries and internal carotid arteries demonstrate a normal course. No stenosis or dissection in the carotid systems. The external carotid arteries are patent and unremarkable. The vertebral arteries are codominant. The origin of the right vertebral artery is seen and is unremarkable. The origin of the left vertebral artery is directly off the aorta and is unremarkable. There is no focal stenosis seen within the neck. There is no dissection. The osseous structures of the cervical spine are unremarkable. Included views through the lung apices demonstrate no focal consolidation. CTA BRAIN: No stenosis or aneurysm in the intracranial portion of the bilateral ICA. No stenosis is seen in the bilateral anterior, middle and posterior cerebral arteries. No evidence of aneurysm the [place]. 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 The right PICA is not visualized. The left PICA and left V4 segment are patent. The basilar artery is normal in course and caliber. The terminal branch vessels including the superior cerebellar arteries unremarkable. IMPRESSION: 1. 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 There is also nonvisualization of the right PICA. No evidence of ischemia is seen within the parenchyma of the right cerebellum at this time and intervention may be warranted. Recommend neuro-interventional consultation. 2. No stenosis or dissection in the bilateral carotid arteries and left vertebral artery. 3. No stenosis or aneurysm in the [place]. No large vessel occlusion. Findings were called to the emergency department at 8:30 PM on 07/15/[address] Deya Adam. Dictated by: Dictated on workstation # [id number] Dict: 07/15/222024 Trans: 07/15/222036 [facility] [id number] Interpreted by: DEYA ADAM DO Electronically signed by: DEYA ADAM DO 07/15/222036 Reviewed: Reviewed by Me, Discussed w/Radiologist Critical Care Note Critical Care Total Time (minutes) 75 minutes Progress 75 minutes of critical care time was spent in care of the patient. Time was spent obtaining history from the patient and family as well as EMS, review of the medical chart, ordering tests and reviewing results, discussion with consultants and family, documentation in the chart. Patient was at risk of neurologic as well as cardiac compromise and required my direct continued care. 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 Gomez and the neurologist Dr. Carpio. Neurology advised that the patient would not be an interventional radiology candidate or a tPA candidate. They recommended further stroke work-up with an MRI and evaluation. He did not want to start anticoagulation for the atrial fibrillation and symptoms until he had the MRI. 2107 Dr. Gomez with the transfer center called back stating that they had a bed [facility] on [facility]. The hospitalist did request to give the patient at least a dose of Lovenox weight-based here. A 110 mg dose of Lovenox was administered and awaiting helicopter transfer for patient to go to [facility]. Transfer Facility: [facility] Method of Transfer: Air (Due to time sensitive nature of stroke, transport by air for fastest method) Departure-Patient Inst. Referrals: NO,LOCAL PHYSICIAN (PCP/Family) Primary Care Physician NIH Stroke Scale NIH Stroke Scale NIH : Select: Initial (1917) Level of Consciousness: 0=Alert Level of Consciousness-Questio: 0=Answers both month/age LOC Commands: 0=Performs both tasks Gaze: 0=Normal Visual David: 0=No visual loss Facial Movement (Facial Paresi: 1=Minor paralysis Motor Function-Arms Right: 0=No drift Motor Function-Arms Left: 0=No drift Motor Function-Legs Right: 0=No drift Motor Function-Legs Left: 0=No drift Limb Ataxia: 0=Absent Sensory: 1=Mild to Moderate loss Best Language: 0=No aphasia Dysarthria: 0=Normal Extinction & Inattention: 0=No abnormality NIH Stroke Scale Score: 2 TAMICA TOURE MD Jul 15, 2022 19:36
[2022-07-15 19:39] LABS: BUN/CREATININE RATIO 22; CALCIUM 9.7 MG/DL (8.5-10.1); CARBON DIOXIDE 22 MMOL/L (21-32); CHLORIDE 106 MMOL/L (98-107); CREATININE SERUM 0.74 MG/DL (0.60-1.30); GFR ESTIMATED 102; GLUCOSE 135 MG/DL (70-105); POTASSIUM 4.5 MMOL/L (3.6-5.0); SODIUM 142 MMOL/L (135-145)
[2022-07-15 19:40] LABS: ALANINE AMINOTRANSFERASE 43 U/L (0-55); ALBUMIN 4.8 GM/DL (3.2-4.5); ALKALINE PHOSPHATASE 116 U/L (40-136); BILIRUBIN,TOTAL 1.8 MG/DL (0.1-1.0); TOTAL PROTEIN 7.2 GM/DL (6.4-8.2)
--- NOTE | 2022-07-15 19:42 | Diagnostic Imaging Report ---
EXAMINATION: Chest 1 view. HISTORY: Shortness of breath. Atrial fibrillation. Right-sided weakness. COMPARISON: 11/16/2021. FINDINGS: The lung volumes are normal. No focal consolidation is seen. Scattered prominent interstitial markings are seen in the lungs. No large pleural effusion or pneumothorax is seen. The cardiomediastinal silhouette is prominent with post-CABG changes. No acute osseous abnormality is seen. IMPRESSION: Cardiomegaly with possible early edema. No focal consolidation or pleural effusion. Dictated by: Dictated on workstation # [id number]
--- NOTE | 2022-07-15 19:42 | Diagnostic Imaging Report ---
EXAMINATION: CT head without contrast. TECHNIQUE: Multiple contiguous axial images were obtained through the brain without the use of intravenous contrast. All CT scans use one or more of the following dose optimizing techniques: automated exposure control, MA and/or KvP adjustment based on patient size and exam type or iterative reconstruction. HISTORY: Dizziness. Right-sided headache. COMPARISON: None available. FINDINGS: No large acute territorial ischemia, mass or hemorrhage. No midline shift or mass effect. The ventricles, cortical sulci and basilar cisterns are patent and unremarkable. The orbits are normal. Paranasal sinuses are normal. Mastoid air cells are clear. No soft tissue abnormality is seen. No osseus lesions or fractures are seen. IMPRESSION: No large acute territorial ischemia, mass or hemorrhage. If symptoms persist, consider MRI of the brain to further evaluate. Dictated by: Dictated on workstation # [id number]
[2022-07-15] MEDS ORDERED: PROMETHAZINE INJ 25 MG/ML (PHENERGAN) AMP IVP STA (19:51)
[2022-07-15] MEDS ORDERED: CATHETER FLUSH 10 ML SYR IV PRN (20:00)
[2022-07-15] MEDS ORDERED: NS 100 ML (IVPB) BAG IV ONE (20:00)
[2022-07-15] MEDS ORDERED: IOHEXOL 350 MG/ML 100 ML (OMNIPAQUE 350) VIAL IV ONE (20:00)
[2022-07-15] MEDS ORDERED: HOLD METFORMIN - RECEIVED CONTRAST 20 ML VIAL IV SCH (20:00)
--- NOTE | 2022-07-15 20:35 | Diagnostic Imaging Report ---
PROCEDURE: CT angiography of the head and CT angiography of the neck with and without contrast. TECHNIQUE: Contiguous noncontrast images were obtained from the skull base through the vertex. After intravenous contrast administration, helical CT angiography of the neck was performed. Source data was reformatted into 3D MIP projections. Delayed post contrast acquisition was also obtained. Auto Exposure Controls were utilized during the CT exam to meet ALARA standards for radiation dose reduction. INDICATION: Dizziness. Right side weakness. Headache. COMPARISON: CT head performed earlier the same date. FINDINGS: CTA NECK: The visualized portions of the aortic arch demonstrate no evidence of aneurysm or dissection. There is conventional branching pattern of the great vessels of the aorta. The brachiocephalic artery is normal in course and caliber. The right and left common carotid origins are unremarkable. The origin of the left subclavian artery is patent. The common carotid arteries and internal carotid arteries demonstrate a normal course. No stenosis or dissection in the carotid systems. The external carotid arteries are patent and unremarkable. The vertebral arteries are codominant. The origin of the right vertebral artery is seen and is unremarkable. The origin of the left vertebral artery is directly off the aorta and is unremarkable. There is no focal stenosis seen within the neck. There is no dissection. The osseous structures of the cervical spine are unremarkable. Included views through the lung apices demonstrate no focal consolidation. CTA BRAIN: No stenosis or aneurysm in the intracranial portion of the bilateral ICA. No stenosis is seen in the bilateral anterior, middle and posterior cerebral arteries. No evidence of aneurysm the telida of [place]. 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 The right PICA is not visualized. The left PICA and left V4 segment are patent. The basilar artery is normal in course and caliber. The terminal branch vessels including the superior cerebellar arteries unremarkable. IMPRESSION: 1. 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 There is also nonvisualization of the right PICA. No evidence of ischemia is seen within the parenchyma of the right cerebellum at this time and intervention may be warranted. Recommend neuro-interventional consultation. 2. No stenosis or dissection in the bilateral carotid arteries and left vertebral artery. 3. No stenosis or aneurysm in the telida of [place]. No large vessel occlusion. Findings were called to the emergency department at 8:30 PM on 07/15/[address] Oscar Adam. Dictated by: Dictated on workstation # [id number]
[2022-07-15] MEDS ORDERED: ENOXAPARIN 60 MG/0.6 ML (LOVENOX) SYR SC STA (21:14)
[2022-07-15 21:58] VITALS: BP 141/97
== END 2022-07-15 22:17 | disposition still patient (30) ==
LOC: EDUNIT# 19:08 → ER FS 19:09
DX: I63.211 Cerebral infarction due to unspecified occlusion or stenosis of right vertebral artery (principal); I48.20 Chronic atrial fibrillation, unspecified; R51.9 Headache, unspecified; R11.2 Nausea with vomiting, unspecified; Z20.822 Contact with and (suspected) exposure to COVID-19; Z28.310 Unvaccinated for COVID-19
CPT/HCPCS: 36415; 70450; 70496; 70498; 71045; 80053; 82947; 83690; 84484; 85025; 85610; 85730; 87636; 93005; 93041; 96372; 96374; 96375; Q9967